=== PATIENT | female | born 1960 | race Caucasian/White ===

== ENCOUNTER 2016-05-04 16:55 | Emergency (ER) | payer OTHER ==
--- NOTE | 2016-05-04 22:00 | ED ORDER SUMMARY ---
..... 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) (17:22 05/04/2016 EKoroleva P.A.-C) (Ack 18:25 LNations ER Tech1) (18:52 DDean R.N.) Cardiac Panel Stat (17:22 05/04/2016 EKoroleva P.A.-C) (Ack 17:30 NHouse ER Tech1) (18:03 JRomanelli R.N.) PTT Urgent (17:05/04/2016 EKoroleva P.A.-C) (Ack 17:30 NHouse ER Tech1) (18:03 JRomanelli R.N.) PT with INR Urgent (17:22 05/04/2016 EKoroleva P.A.-C) (Ack 17:30 NHouse ER Tech1) (18:03 JRomanelli R.N.) Lipase Urgent (17:22 05/04/2016 EKoroleva P.A.-C) (Ack 17:30 NHouse ER Tech1) (18:03 JRomanelli R.N.) UA-Culture if indicated Urgent (17:22 05/04/2016 EKoroleva P.A.-C) (Ack 17:30 NHouse ER Tech1) (18:05 DDean R.N.) EKG - ER Stat (17:22 05/04/2016 EKoroleva P.A.-C) (17:26 LNations ER Tech1) POC Glucose (17:22 05/04/2016 EKoroleva P.A.-C) (17:25 LNations ER Tech1) ABG (G) Urgent (18:07 05/04/2016 EKoroleva P.A.-C) (Ack 18:25 LNations ER Tech1) (18:59 DDean R.N.) Lactate, Serum Urgent (18:05/04/2016 EKoroleva P.A.-C) (Ack 18:25 LNations ER Tech1) (19:02 NHouse ER Tech1) Acetone, Serum Urgent (18:17 05/04/2016 EKoroleva P.A.-C) (Ack 18:25 LNations ER Tech1) (19:02 NHouse ER Tech1) POC Glucose (20:18 05/04/2016 EKoroleva P.A.-C) (20:25 LMuller) Abd Series 2V Abd/1V Chest Urgent (20:26 05/04/2016 EKoroleva P.A.-C) (20:43 DDean R.N.) Vitals (21:38 05/04/2016 EKoroleva P.A.-C) (21:56 DDean R.N.) POC Glucose (21:54 05/04/2016 EKoroleva P.A.-C) (21:56 DDean R.N.) MEDICATION ORDERS: Phenergan IV 12.5 mg (HIGH ALERT MEDICATION, NOW) (18:13 05/04/2016 EKoroleva P.A.-C) (18:52 DDean R.N.) Atenolol PO 50 mg (NOW) (20:48 05/04/2016 EKoroleva P.A.-C) (20:49 DDean R.N.) GI Cocktail WHITE PO 30 mL with Lidocaine Viscous Mouth/Throat 15 mL, Maalox Plus Oral 15 mL (NOW) (21:19 05/04/2016 EKoroleva P.A.-C) (Ack 21:50 DDean R.N.) (21:56 DDean R.N.) IV FLUIDS: IV NS : initial bolus 1000 mL (1000 mL/hr), then 1000 mL/hr for X1 (NOW); Lester (17:22 05/04/2016 EKoroleva P.A.-C) (Ack 18:05 DDean R.N.) (18:50 DDean R.N.) Zofran IV 4 mg (NOW) (18:50 05/04/2016 DDean R.N. per protocol) (18:51 DDean R.N.) Ativan IV 0.5 mg (HIGH ALERT MEDICATION, NOW) (18:58 05/04/2016 EKoroleva P.A.-C) (Ack 18:59 DDean R.N.) (19:05 DDean R.N.) Dilaudid IV 0.5 mg (HIGH ALERT MEDICATION, NOW) (18:58 05/04/2016 EKoroleva P.A.-C) (Ack 18:59 DDean R.N.) (19:06 DDean R.N.) Dilaudid IV 0.5 mg (HIGH ALERT MEDICATION, NOW) (20:26 05/04/2016 EKoroleva P.A.-C) (20:45 DDean R.N.) ORDER SHEET NOTES: [Electronically signed by Dorina Levy R.N. (22:22 05/04/2016)] [Electronically signed by Yesica BeattyA.-C (22:48 05/04/2016)] [Electronically locked/signed by Dorina Levy R.N. (22:22 05/04/2016)]
--- NOTE | 2016-05-04 22:00 | ED ORDER SUMMARY ---
..... 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) (17:22 05/04/2016 EKoroleva P.A.-C) (Ack 18:25 LNations ER Tech1) (18:52 DDean R.N.) Cardiac Panel Stat (17:22 05/04/2016 EKoroleva P.A.-C) (Ack 17:30 NHouse ER Tech1) (18:03 JRomanelli R.N.) PTT Urgent (17:05/04/2016 EKoroleva P.A.-C) (Ack 17:30 NHouse ER Tech1) (18:03 JRomanelli R.N.) PT with INR Urgent (17:22 05/04/2016 EKoroleva P.A.-C) (Ack 17:30 NHouse ER Tech1) (18:03 JRomanelli R.N.) Lipase Urgent (17:22 05/04/2016 EKoroleva P.A.-C) (Ack 17:30 NHouse ER Tech1) (18:03 JRomanelli R.N.) UA-Culture if indicated Urgent (17:22 05/04/2016 EKoroleva P.A.-C) (Ack 17:30 NHouse ER Tech1) (18:05 DDean R.N.) EKG - ER Stat (17:22 05/04/2016 EKoroleva P.A.-C) (17:26 LNations ER Tech1) POC Glucose (17:22 05/04/2016 EKoroleva P.A.-C) (17:25 LNations ER Tech1) ABG (G) Urgent (18:07 05/04/2016 EKoroleva P.A.-C) (Ack 18:25 LNations ER Tech1) (18:59 DDean R.N.) Lactate, Serum Urgent (18:05/04/2016 EKoroleva P.A.-C) (Ack 18:25 LNations ER Tech1) (19:02 NHouse ER Tech1) Acetone, Serum Urgent (18:17 05/04/2016 EKoroleva P.A.-C) (Ack 18:25 LNations ER Tech1) (19:02 NHouse ER Tech1) POC Glucose (20:18 05/04/2016 EKoroleva P.A.-C) (20:25 LMuller) Abd Series 2V Abd/1V Chest Urgent (20:26 05/04/2016 EKoroleva P.A.-C) (20:43 DDean R.N.) Vitals (21:38 05/04/2016 EKoroleva P.A.-C) (21:56 DDean R.N.) POC Glucose (21:54 05/04/2016 EKoroleva P.A.-C) (21:56 DDean R.N.) MEDICATION ORDERS: Phenergan IV 12.5 mg (HIGH ALERT MEDICATION, NOW) (18:13 05/04/2016 EKoroleva P.A.-C) (18:52 DDean R.N.) Atenolol PO 50 mg (NOW) (20:48 05/04/2016 EKoroleva P.A.-C) (20:49 DDean R.N.) GI Cocktail WHITE PO 30 mL with Lidocaine Viscous Mouth/Throat 15 mL, Maalox Plus Oral 15 mL (NOW) (21:19 05/04/2016 EKoroleva P.A.-C) (Ack 21:50 DDean R.N.) (21:56 DDean R.N.) IV FLUIDS: IV NS : initial bolus 1000 mL (1000 mL/hr), then 1000 mL/hr for X1 (NOW); Lester (17:22 05/04/2016 EKoroleva P.A.-C) (Ack 18:05 DDean R.N.) (18:50 DDean R.N.) Zofran IV 4 mg (NOW) (18:50 05/04/2016 DDean R.N. per protocol) (18:51 DDean R.N.) Ativan IV 0.5 mg (HIGH ALERT MEDICATION, NOW) (18:58 05/04/2016 EKoroleva P.A.-C) (Ack 18:59 DDean R.N.) (19:05 DDean R.N.) Dilaudid IV 0.5 mg (HIGH ALERT MEDICATION, NOW) (18:58 05/04/2016 EKoroleva P.A.-C) (Ack 18:59 DDean R.N.) (19:06 DDean R.N.) Dilaudid IV 0.5 mg (HIGH ALERT MEDICATION, NOW) (20:26 05/04/2016 EKoroleva P.A.-C) (20:45 DDean R.N.) ORDER SHEET NOTES: [Electronically signed by Dorina Levy R.N. (22:22 05/04/2016)] [Electronically signed by Yesica BeattyA.-C (22:48 05/04/2016)] [Electronically locked/signed by Dorina Levy R.N. (22:22 05/04/2016)]
--- NOTE | 2016-05-04 22:00 | ED CLINICAL REPORT ---
Clinical Report - Physicians/Mid Levels [facility] [address] [place] [address] 05/04/2016 16:57 Patient: LIZZY DORSEY Time Seen: 17:33 May 04 2016. Arrived- By private vehicle. Historian- patient. HISTORY OF PRESENT ILLNESS Chief Complaint: ABDOMINAL PAIN. It is described as "pain" and it is described as located in the epigastric area and in the upper abdomen. This started yesterday and is still present. (56-year-old female, who was seen at [facility] on the eighth, with abdominal pain, that started on the fifth, with associated diarrhea, for 3 days, none now. Patient reports going home, resting and sleeping, however woke up with abdominal pain, no emesis. Has a history of hypertension,, and for such to be high. Patient received medical care at [facility], reports advanced images. Was discharged last night after 5 hours.). ADDITIONAL NOTES The nursing notes have been reviewed. PHYSICAL EXAM Vital Signs: 05/04/2016 17:10 BP: 203/99. HR: 95. RR: 24. O2 saturation: 100%. Temp: 99.5 F. Pain level now: 8/10. Appearance: Alert. Eyes: Eyes normal inspection. No scleral icterus. ENT: Nose normal. Pharynx normal. Neck: Normal inspection. No thyromegaly. CVS: Normal heart rate and rhythm. Heart sounds normal. Respiratory: No respiratory distress. Breath sounds normal. No decreased air movement. Abdomen: Mild tenderness diffusely and in the epigastric area. No organomegaly. No mass. Skin: Skin warm. Normal skin color. Neuro: Oriented X 3. LABS, X-RAYS, AND EKG EKG: EKG time: (5838). No acute process. No acute ischemia. Rate: 96. Normal QRS complex. Normal axis. Normal ST and T waves and QT. no change from 05/03/16. EKG unchanged when compared with prior EKG. Chest X-ray: (Portable: 05/03/2016 IMPRESSION- No acute cardiopulmonary process. RADIA Dictated By: Nima Stephens MD 2016-05-03 20:04:10.14). KUB: (1 view chest/ 2 view abd: IMPRESSION: 1. Mild gaseous distention of the small bowel and colon. While this may be normal (or due to air swallowing), consider ileus. 2. Status post cholecystectomy. 3. Otherwise negative abdomen. 4. Negative chest. Electronically Final signed by:Otto Ortiz MD 05/04/2016 10:08:24 PM). Laboratory Tests: UA-Culture if indicated: (VICKI: 05/04/2016 17:05) ( MsgRcvd 05/04/2016 18:04) Final results Test Result Flag Units (Reference) URINE COLOR YELLOW URINE APPEARANCE CLEAR URINE GLUCOSE 3+ (NEGATIVE) URINE BILIRUBIN ICTOTEST NEGATIVE (NEGATIVE) URINE KETONE 1+ (NEGATIVE) URINE SPECIFIC GRAVITY 1.025 (1.010-1.030) URINE PH 5.5 (5.0-8.0) URINE PROTEIN 2+ (NEGATIVE) URINE UROBILINOGEN 0.2 EU/dL (0.2-1.0) URINE NITRITE NEGATIVE (NEGATIVE) URINE BLOOD 2+ (NEGATIVE) URINE LEUK ESTERASE NEGATIVE (NEGATIVE) URINE RBC 1-3 rbc/hpf (0-1) URINE WBC 0-1 wbc/hpf (0-1) URINE EPITHELIAL CELLS 3-5 EPI/hpf (0-5) URINE BACTERIA FEW (1+) (NONE SEEN) URINE COMMENT CULT NOT INDICATED URINE CULTURES ARE SET-UP BASED ON THE FOLLOWING CRITERIA:POSITIVE NITRITEPOSITIVE LEUKOCYTE ESTERASEGREATER THAN 10 WHITE BLOOD CELLSMODERATE (2+) OR GREATER BACTERIA CBC w Diff: (VICKI: 05/04/2016 17:50) ( MsgRcvd 05/04/2016 18:10) Final results Test Result Flag Units (Reference) WHITE BLOOD COUNT 10.9 K/uL (4.5-11.5) RED BLOOD COUNT 4.38 M/uL (4.00-5.20) HEMOGLOBIN 12.6 gm/dL (12.0-16.0) HEMATOCRIT 38.5 % (36.0-46.0) MEAN CELL VOLUME 88 fL (80-100) MEAN CORPUSCULAR HGB 29 pg (26-34) MEAN CORPUSCULAR HGB CONC 33 g/dL (31-37) RED CELL DISTRIBUTION WIDTH 12.5 % (11.6-14.8) PLATELET COUNT 269 K/uL (150-400) NEUTROPHIL % 59.7 % (50-75) LYMPH % 32.1 % (25-40) MONO % 7.0 % (3-14) EOSINOPHIL % 0.8 % (0-4) BASOPHIL % 0.4 % (0-2) PT with INR: (VICKI: 05/04/2016 17:50) ( [facility] [place] [facility]22) Final results Test Result Flag Units (Reference) INR 0.9 (0.8-1.2) Low Intensity Therapy: INR 1.5-2.0 PT range 18.5-23.1Mod.Intensity Therapy: INR 2.0-3.0 PT range 23.1-31.5High Intensity Therapy: INR 2.5-3.5 PT range 27.4-35.5High Intensity Therapy 2: INR 3.0-4.0 PT range 31.5-39.3 APTT 26 SECONDS (24-34) Acetone, Serum: (VICKI: 05/04/2016 17:50) ( [facility] [place] 18:28) Final results Test Result Flag Units (Reference) ACETONE, SERUM QUALITATIVE POSITIVE (NEGATIVE) Lactate, Serum: (VICKI: 05/04/2016 18:50) ( [facility] [place] 05/04/[place] 19:27) Final results Test Result Flag Units (Reference) LACTIC ACID 1.4 mmol/L (0.4-2.0) CHEM 13 PANEL: (VICKI: 05/04/2016 17:50) ( [facility] [place] [facility]04[facility] 18:37) Final results Test Result Flag Units (Reference) GLUCOSE 249 H mg/dL (70-110) BUN 18 mg/dL (7-18) CREATININE 1.3 mg/dL (0.6-1.3) Estimated GFR 44.87 mL/min Estimated GFR- 54.39 mL/min Note: Persistent reduction over 3 months in eGFR<60 mL/min/1.73 m2 defines CKD. Patients with eGFR values>=60 mL/min/1.73 m2 may also have CKD if evidence ofpersistent proteinuria. Additional information may be foundat www.kidney.org. SODIUM 140 mmol/L (136-145) POTASSIUM 3.5 mmol/L (3.5-5.1) CHLORIDE 104 mmol/L (98-107) CARBON DIOXIDE 21 mmol/L (21-32) CALCIUM 8.6 mg/dL (8.5-10.1) TOTAL PROTEIN 7.1 g/dL (6.4-8.2) ALBUMIN 3.7 g/dL (3.3-5.0) BILIRUBIN, TOTAL 0.5 mg/dL (0.0-1.0) ALKALINE PHOSPHATASE 130 H U/L (46-116) AST (SGOT) 18 U/L (15-37) ALT (SGPT) 19 U/L (12-78) MAGNESIUM 1.2 L mg/dL (1.8-2.4) LIPASE 292 U/L (73-393) CPK 230 U/L (24-260) TROPONIN I <0.05 ng/mL (0.00-1.5) TROPONIN REFERENCE RANGE:<0.1 NEGATIVE0.1-1.5 INDETERMINANT>1.5 POSITIVE ABG: (VICKI: 05/04/2016 18:07) ( MsgRcvd 05/04/2016 18:34) Final results Test Result Flag Units (Reference) FIO2 21 % (20-101) MODIFIED JANE TEST POSITIVE? YES ABG VENT MODE SB ABG PATIENT RESP RATE 30 /MIN ARTERIAL BLOOD GAS SITE RR ARTERIAL BLOOD GAS pH 7.48 H (7.35-7.45) ABG PCO2 27.9 L mmHg (35-45) ABG PO2 91.9 mmHg (80.0-100.0) ABG BASE EXCESS -2.3 H mmol/L (-6.0--6.0) ABG HCO3 20.8 mmol/L (20.0-26.0) ABG TCO2 21.7 L mmol/L (24.0-30.0) ABG DdPuD3h 23.6 H mmHg (7.0-14.0) *NOTE: Normal rangeis based on aFIO2 of 21% ABG SAT O2 97.2 % (95.1-100.0) ABG TOTAL HEMOGLOBIN 11.8 L g/dL (12.0-16.0) ABG O2 HEMOGLOBIN 96.3 % (95.0-100.0) ABG CARBOXYHEMOGLOBIN 0.6 % (0.5-1.5) ABG METHEMOGLOBIN 0.3 L % (0.4-1.5) ABG RHEMOGLOBIN 2.8 % . Note - Tests: (ct abd/pelvis w/o contrast: 05/03/2016: IMPRESSION- 1. No localized acute inflammatory process. 2. No urolithiasis or hydronephrosis. 3. Right adrenal nodule is of indeterminate density, however is stable since 09/28/2013 consistent with a benign etiology. RADIA Dictated By: Beatris Carlin MD 2016-05-03 18:01:39.557). PROGRESS AND PROCEDURES Course of Care: prior records reviewed from the eighth, patient with a chest x-ray, CT of the abdomen no contrast, with no significant findings, patient was fine to be with mild DKA, received IV and S, and had improvement. ( glucose: 199). --21:57 here in the ER, patient with abdominal pain, with positive ketones, and glucose less than 300, however elevated, with no signs of acidosis. She was given 2 L of IV saline, her pain of the abdomen worsen when she elevated to the bathroom, and was given Dilaudid for such, she had a negative CT yesterday, and thus x-ray abdomen today was rather unrevealing. Patient did arrive is slight hyperventilation, with anxiety, and this did receive Ativan as well. Otherwise in no distress. Patient able to ambulate. No chest pain or shortness of breath, EKG unremarkable, troponin unremarkable. No signs of cardiac etiology or pulmonary etiology. Patient with no known history of gastritis or ulcer disease, was given GI cocktail, and had some improvement of such as well, to follow up outpatient. patient with elevated blood pressure, was given metoprolol in the ER. Had improvement of such. 05/04/2016 22:15 BP: 166/87. HR: 76. RR: 18. O2 saturation: 98%. Pain level now: 6/10. Patient is stable. Physical exam findings are improved. Symptoms better. Patient/family counseled. Disposition: Discharged. CLINICAL IMPRESSION Acute epigastric abdominal pain of unknown cause. Moderately well controlled type 2 diabetes. Hypertension. INSTRUCTIONS Drink plenty of fluids. (check your sugars daily, and make a follow up with your DR in next 48 hours). Prescription Medications: Hydrocodone/APAP 5mg / 325mg: take 1 orally every 6 hours as needed for pain. Dispense twelve (12). No refill. Zofran (orally disintegrating tablets) 4 mg: take 1 orally every 6 hours for 3 days as needed for nausea. Dispense ten (10). No refill. Substitution is permissible. Follow-up: Follow up with your doctor in two days. (Electronically signed by Yesica Beatty P.A.-C 05/04/2016 22:48)
--- NOTE | 2016-05-04 22:00 | ED NURSING NOTES ---
Clinical Report - Nurses [facility] [address] [place] [address] 05/04/2016 16:57 Patient: LIZZY DORSEY TRIAGE Triage time 1702. Acuity: LEVEL 3. Chief Complaint: ABDOMINAL PAIN. --17:19 Dorina Levy R.N. 17:10 05/04/16. BP: 203/99. HR: 95. RR: 24. O2 saturation: 100%. Temp: 99.5 F. Pain level now: 12/03. --17:19 Dorina Levy R.N. Weight: 88.4 kg stated. Height/Length: 65 inches Per Patient. BMI: 32.5. --17:15 Dorina Levy R.N. Medications Cymbalta Oral 60mg, daily. Gabapentin Oral 1 in am, 2 at HS . HumaLOG Subcutaneous 6 units am, 8units lunch, 10 units dinner. Lantus Subcutaneous. Levemir Subcutaneous 40-50units daily . Lipitor Oral 20 mg, daily. Metoprolol Tartrate Oral 25 mg, BID. Nucynta Oral (Tablet 100 mg) 1 tablet, TID. Reglan Oral 10 mg, 4x a day as needed. --17:53 Dorina Levy R.N. Albuterol Sulfate Inhalation 2 puffs, EERY 6 HOURS NEEDED . Colace Oral 100 mg, 2 tabs BID. Norvasc Oral 5 mg, daily. Vit [id number]-Zn-CU Oral 50mg daily. Vit D-Vit E-Safflower Oil External 1000UNITS daily. --18:01 Dorina Levy R.N. The following entry was struck and corrected by Dorina Levy R.N., 18:04 (05/04/16) Reason for correction - other(correction). <<STRICKEN ENTRY-- Cymbalta Oral 60mg, daily. --17:53 Cam, Dorina, R.N. --END STRIKE>>. Allergies Metformin and Related. --17:49 Dorina Levy R.N. History Arrived by private vehicle. Historian: patient. Accompanied by spouse. Primary physician (bobkatiuska). The patient has had diarrhea and abdominal pain. No nausea or vomiting. SOCIAL HX: Never smoker. No alcohol use or drug use. --17:19 Dorina Levy R.N. PROBLEMS: Hyperkalemia. Gallstone(s). Anxiety Reaction. MRSA Infection. Abd pain, N/V. Leukocytosis. LNMP - Last Normal Menstrual Period. Nerve pain. Vomiting. Abdominal Pain. Gastroparesis. Panic Attack. Hypercholesterolemia. Hypertension. Diabetes Mellitus. --17:16 Dorina Levy R.N. ADDITIONAL SURGERIES: Cholecystectomy. Colonoscopy. Cyst removed from axilla. Endoscopy. Hysterectomy. Neck Surgery. Previous Abdominal Surgery. Rotator Cuff Surgery. Shoulder Surgery. --17:16 Dorina Levy R.N. Interventions ID band on patient. To treatment room. --17:19 Dorina Levy R.N. PHYSICAL ASSESSMENT 17:02. Ambulatory to room. Patient gowned. GENERAL / NEURO / PSYCH: Alert. Oriented X 4. Appears anxious. RESPIRATORY: Respirations not labored. CVS: ( states she feels short of breath due to anxiety). Capillary refill less than 2 seconds. GI / : The patient has diarrhea. SKIN: Skin is warm and dry. --17:18 Dorina Levy R.N. NURSING PROGRESS NOTES 17:02. Patient gowned. Head of bed elevated. Reassurance given. Patient identifiers checked. Call light placed in reach. Side rails up. Bed placed in lowest position. Patient ready for evaluation- chart flagged. --17:17 Dorina Levy R.N. ( bl. [id number]). --17:26 Madai Moyer, QUAN Tech 17:30. ( hot packs applied to arm prior to IV attempt). --17:35 Dorina Levy R.N. 17:30 05/04/2016 One (1) unsuccessful IV access attempt including the right antecubital space. Applied bandaid. --17:35 Dorina Levy R.N. EKG time: (1738). EKG was ordered, performed by a tech and shown to the ED physician. --17:44 Madai Moyer ER Tech1 17:52 05/04/2016 Site #1 started via IV in the left forearm with an 22g angiocath, with aseptic technique and good blood return; one attempt. Blood drawn: rainbow set. Labeled in the presence of the patient and sent to the lab. Saline lock flushed with 10 mL saline. --18:02 Patrice Alexis R.N. 18:07 05/04/2016 Started bag #1 1000 mL IV Fluids IV NS (Saline); at 1000 mL/hr over 1 hour(s) via site #1 via IV pump. IV patency established. IV site checked: no pain, redness, or swelling. IV flushed thoroughly pre- and post-medication administration. --18:50 Dorina Levy R.N. 18:07 05/04/2016 Zofran (Ondansetron HCl) IVP 4 mg given over 1 minute(s) via site #1. IV patency established. IV site checked: no pain, redness, or swelling. IV flushed thoroughly pre- and post-medication administration. IVP given by RN. --18:51 Dorina Levy R.N. 18:50 05/04/2016 PHENERGAN (Promethazine HCl) IVP 12.5 mg given over 1 minute(s) via site #1. IV patency established. IVP given by RN. --18:52 Dorina Levy R.N. 19:00 05/04/2016 Ativan (LORazepam) IVP 0.5 mg given over 1 minute(s) via site #1. IV patency established. IV site checked: no pain, redness, or swelling. IV flushed thoroughly pre- and post-medication administration. IVP given by RN. --19:05 Dorina Levy R.N. 19:02 05/04/2016 Dilaudid (HYDROmorphone HCl PF) IVP 0.5 mg given over 1 minute(s) via site #1. IV patency established. IV site checked: no pain, redness, or swelling. IV flushed thoroughly pre- and post-medication administration. IVP given by RN. --19:06 Dorina Levy R.N. 18:50 05/04/16. BP: 209/97. HR: 94. RR: 22. O2 saturation: 98%. Temp: deferred. Pain level now: 12/03. Additional comments: pt still c/o abd pain, ERPA notified, meds ordered and given . --19:07 Dorina Levy R.N. 19:10 05/04/16. BP: 181/82. HR: 87. RR: 20. O2 saturation: 96%. Temp: deferred. Pain level now: 11/02. --19:13 Dorina Levy R.N. Reassessment after medication administered. Overall patient status is improved- she states feels better. --19:13 Dorina Levy R.N. 19:10 05/04/2016 IV Fluids IV NS Bag Change: bag #1 infused. Total amount infused: 1000. STARTED bag #2 (1000 mL) at 1000 mL/hr via IV pump. IV patency established. IV site checked: no pain, redness, or swelling. IV flushed thoroughly. --19:14 Dorina Levy R.N. 19:50. ( Pt ambulated to bathroom with escort, steady on feet, c/o worsening abd pain after being up, asking for more pain meds ERPA notified). --20:07 Dorina Levy R.N. 20:00 05/04/16. BP: 210/96. HR: 90. RR: 22. O2 saturation: 98%. Temp: deferred. Pain level now: 12/03. --20:07 Dorina Levy R.N. ( blood glucose: 192). --20:26 Akilah Acuna 20:10 05/04/2016 IV Fluids IV NS Discontinued: bag #2 infused upon discharge. Total amount infused: 1000 mL. IV patency established. IV site checked: no pain, redness, or swelling. IV flushed thoroughly. --20:41 Dorina Levy R.N. 20:30. Patient transported to radiology by stretcher with Hudl. --20:44 Dorina Levy R.N. 20:41. Patient returned from radiology by stretcher with tech. --20:45 Dorina Levy R.N. 20:42 05/04/2016 Dilaudid (HYDROmorphone HCl PF) IVP 0.5 mg given over 1 minute(s) via site #1. Sedative warning given to the patient. IV patency established. IV site checked: no pain, redness, or swelling. IV flushed thoroughly pre- and post-medication administration. IVP given by RN. --20:45 Dorina Levy R.N. 20:45 05/04/16. BP: 190/84. HR: 86. RR: 20. O2 saturation: 97% on room air. Temp: deferred. Pain level now: 11/02. --20:46 Dorina Levy R.N. 20:49 05/04/2016 Atenolol PO Oral Suspension 50 mg given. --20:49 Dorina Levy R.N. 21:50 05/04/16. BP: 178/81. HR: 86. RR: 20. O2 saturation: 99% on room air. Temp: deferred. Pain level now: 10. Additional comments: given GI cocktail, no change in pain level. --21:56 Dorina Levy R.N. 21:46 05/04/2016 GI cocktail * PO 50 --21:56 Dorina Levy R.N. 21:57 05/04/16. ( [id number] ERPA notified). --21:57 Dorina Levy R.N. ( glucose: 199). --21:57 Akilah Acuna 22:05 05/04/2016 Site #1 removed upon discharge. Bandaid applied. --22:21 Dorina Levy R.N. DISPOSITION / DISCHARGE 22:15. Condition at departure: improved and stable. No learning barriers present. Discharge instructions provided and reviewed with the patient and spouse. Reviewed medication(s) (zofran, vicodin). Patient and spouse verbalized understanding. Written instructions provided in Bengali. The patient was discharged home and accompanied by spouse. She left the Emergency Department ambulatory and via private vehicle. Spouse driving. --22:20 Dorina Levy R.N. 22:15 05/04/16. BP: 166/87. HR: 76. RR: 18. O2 saturation: 98% on room air. Temp: deferred. Pain level now: 10/03. --22:20 Dorina Levy R.N. Locked/Released at 05/04/2016 22:22 by Dorina Levy R.N.
--- NOTE | 2016-05-04 22:09 | DIAGNOSTIC IMAGING REPORT ---
PROCEDURE: XR ABD SERIES 2V ABD/1V CHEST INDICATION: ABDOMINAL PAIN TECHNIQUE: AP supine and upright views with PA view chest. COMPARISON: None. FINDINGS: ABDOMEN: Mild gaseous distention in nondilated small bowel and colon. No evidence of free air. Soft tissues and osseous structures are normal. Status post cholecystectomy (surgical clips). CHEST: Lungs are clear. Heart and mediastinum are normal. Postoperative changes and fusion of the lower cervical/upper thoracic spine. IMPRESSION: 1. Mild gaseous distention of the small bowel and colon. While this may be normal (or due to air swallowing), consider ileus. 2. Status post cholecystectomy. 3. Otherwise negative abdomen. 4. Negative chest.
--- NOTE | 2016-05-04 22:48 | ED MED RECONCILIATION SUMMARY ---
Patient: LIZZY DORSEY Medication Reconciliation Report [facility] VisitID: [id number] [address] [place] [address] 56y, F Registration Date/Time: 05/04/2016 Weight: 88.4 kg Height/Length: 65 in. BMI: 32.5 ALLERGIES: Metformin and Related The patient's Home Medications are listed below: THE FOLLOWING MEDICATIONS NEED TO BE RECONCILED: Albuterol Sulfate Inhalation 2 puffs, EERY 6 HOURS NEEDED Colace Oral 100 mg, 2 tabs BID Cymbalta Oral 60mg, daily Gabapentin Oral 1 in am, 2 at HS HumaLOG Subcutaneous 6 units am, 8units lunch, 10 units dinner Lantus Subcutaneous Levemir Subcutaneous 40-50units daily Lipitor Oral 20 mg, daily Metoprolol Tartrate Oral 25 mg, BID Norvasc Oral 5 mg, daily Nucynta Oral (100 mg) 1 tablet, TID Reglan Oral 10 mg, 4x a day Vit [id number] Oral 50mg daily Vit D-Vit E-Safflower Oil External 1000UNITS daily The source(s) of the original Home Medication information: Not obtained. The following Medications were given to the patient in the Emergency Department: IV NS IV Fluids bolus 0, then 1000 mL/hr, administered: 05/04/2016 6:07:00 PM Zofran [IVP] IVP 4 mg, administered: 05/04/2016 6:07:00 PM PHENERGAN [IVP] IVP 12.5 mg, administered: 05/04/2016 6:50:00 PM Ativan [IVP] IVP 0.5 mg, administered: 05/04/2016 7:00:00 PM Dilaudid [IVP] IVP 0.5 mg, administered: 05/04/2016 7:02:00 PM Dilaudid [IVP] IVP 0.5 mg, administered: 05/04/2016 8:42:00 PM Atenolol [PO] PO 50 mg, administered: 05/04/2016 8:49:00 PM GI cocktail PO 50, administered: 05/04/2016 9:46:00 PM The following Medications were prescribed to the patient: Hydrocodone/APAP 5mg / 325mg: take 1 orally every 6 hours as needed for pain. Dispense twelve (12). No refill. -- Yesica Beatty P.A.-C Zofran (orally disintegrating tablets) 4 mg: take 1 orally every 6 hours for 3 days as needed for nausea. Dispense ten (10). No refill. Substitution is permissible. -- Yesica Beatty P.A.-C
--- NOTE | 2016-05-04 22:48 | ED MAR SUMMARY ---
..... Medication Administration Record [facility] [address] [place] [address] Patient: LIZZY DORSEY Visit ID: [id number] 56y, F Weight: 88.4 kg Height/Length: 65 in BMI: 32.5 ALLERGIES: Metformin and Related Given 18:07 05/04/2016 Dorina Levy R.N. Medication Administered: ZOFRAN [IVP] (ONDANSETRON HCL), Dose: 4 mg IVP over 1 minute(s), Site: #1 left forearm. Medication Ordered: Zofran IV 4 mg (NOW). Start 18:07 05/04/2016 Dorina Levy R.N., Stop 20:10 05/04/2016 Dorina Levy R.N. Medication Administered: IV NS (SALINE), Dose: IV Fluids over 1 hour(s), Rate: 1000 mL/hr, Dispensed: 1000 mL bag, Site: #1 left forearm. Medication Ordered: IV NS : initial bolus 1000 mL (1000 mL/hr), then 1000 mL/hr for X1 (NOW); Lester. Given 18:50 05/04/2016 Dorina Levy R.N. Medication Administered: PHENERGAN [IVP] (PROMETHAZINE HCL), Dose: 12.5 mg IVP over 1 minute(s), Site: #1 left forearm. Medication Ordered: Phenergan IV 12.5 mg (HIGH ALERT MEDICATION, NOW). Given 19:00 05/04/2016 Dorina Levy R.N. Medication Administered: ATIVAN [IVP] (LORAZEPAM), Dose: 0.5 mg IVP over 1 minute(s), Site: #1 left forearm. Medication Ordered: Ativan IV 0.5 mg (HIGH ALERT MEDICATION, NOW). Given 19:02 05/04/2016 Dorina Levy R.N. Medication Administered: DILAUDID [IVP] (HYDROMORPHONE HCL PF), Dose: 0.5 mg IVP over 1 minute(s), Site: #1 left forearm. Medication Ordered: Dilaudid IV 0.5 mg (HIGH ALERT MEDICATION, NOW). Given 20:42 05/04/2016 Dorina Levy RSharitaN. Medication Administered: DILAUDID [IVP] (HYDROMORPHONE HCL PF), Dose: 0.5 mg IVP over 1 minute(s), Site: #1 left forearm. Medication Ordered: Dilaudid IV 0.5 mg (HIGH ALERT MEDICATION, NOW). Given 20:49 05/04/2016 Dorina Levy R.N. Medication Administered: ATENOLOL [PO], Dose: 50 mg Oral Suspension PO. Medication Ordered: Atenolol PO 50 mg (NOW). Given 21:46 05/04/2016 Dorina Levy RSharitaN. Medication Administered: GI cocktail *, Dose: 50 * PO. Medication Ordered: GI Cocktail WHITE PO 30 mL with Lidocaine Viscous Mouth/Throat 15 mL, Maalox Plus Oral 15 mL (NOW).
--- NOTE | 2016-05-04 22:48 | ED DISCHARGE INSTRUCTIONS ---
Patient: LIZZY DORSEY General Instructions [facility] VisitID: [id number] [place] [address] 56y, F Registration Date/Time: 05/04/2016 Acute epigastric abdominal pain of unknown cause. Moderately well controlled type 2 diabetes. Hypertension. INSTRUCTIONS Drink plenty of fluids. (check your sugars daily, and make a follow up with your DR in next 48 hours). Prescription Medications: Hydrocodone/APAP 5mg / 325mg: take 1 orally every 6 hours as needed for pain. Dispense twelve (12). No refill. Zofran (orally disintegrating tablets) 4 mg: take 1 orally every 6 hours for 3 days as needed for nausea. Dispense ten (10). No refill. Substitution is permissible. Follow-up: Follow up with your doctor in two days. ADDITIONAL INFORMATION Epigastric Pain (Uncertain Cause) Epigastric pain can be a sign of disease in the upper abdomen. Common causes include: Acid reflux (stomach acid flowing up into the esophagus) Gastritis (irritation of the stomach lining) Peptic Ulcer Disease Inflammation of the pancreas Gallstone Infection in the gallbladder Pain may be dull or burning. It may spread upward to the chest or to the back. There may be other symptoms such as belching, bloating, cramps or hunger pains. There may be weight loss or poor appetite, nausea or vomiting. Since the diagnosis of your pain is not certain yet, further tests will be needed. Sometimes the doctor will treat you for the most likely condition to see if there is improvement before doing further tests. Home Care: Unless told otherwise, you may try antacids (Mylanta or Maalox) help neutralize stomach acid. This may relieve your pain. Take 1-2 tablespoons or tablets one hour after meals and at bedtime. The liquid form coats the stomach better than the chewable tablets and is preferred. If Tagamet (cimetidine), Zantac (ranitidine), or Carafate (sucralfate) has also been prescribed, allow one hour between taking this medicine and taking the antacids. Avoid foods that irritate the stomach. Follow a light diet until you are feeling better. Avoid alcohol, caffeine, and tobacco. Talk to your doctor before taking any [id number] medicine that contains aspirin or an anti-inflammatory drug such as ibuprofen, Advil, Motrin, Naprosyn, or Aleve. Follow Up with your doctor or as advised if you do not improve over the next 48 hours. Get Prompt Medical Attention if any of the following occur: Stomach pain worsens or moves to the right lower part of the abdomen Chest pain appears, or if it worsens or spreads to the chest, back, neck, shoulder, or arm Frequent vomiting (cant keep down liquids) Blood in the stool or vomit (red or black color) Feeling weak or dizzy, fainting, or having trouble breathing Fever of 100.4F (38C) or higher, or as directed by your healthcare provider Abdominal swelling Symptoms With Uncertain Cause [Adult] Based on the exam and any tests that were performed today, the exact cause of your symptoms is not certain. While your condition does not seem serious, the signs of a serious problem may take more time to appear. Therefore, it is important for you to watch for any new symptoms or worsening of your condition.Follow up with your doctor or this facility, as directed.A repeat physical exam or additional testing at a later time may uncover a cause for your symptoms that is not evident today. Home Care: Resume your usual activities and diet when this feels comfortable to do so. Follow Up with your doctor, or as advised by our staff.Contact your doctor sooner if your symptoms do not begin to improve in the next few days. [NOTE: If you had an x-ray, CT scan, ultrasound, or ECG (electrocardiogram), it will be reviewed by a specialist. You will be notified of any new findings that may affect your care.] Get Prompt Medical Attention if any of the following occur: Current symptoms get worse New symptoms appear Diabetes (General Information) Cells of the body need glucose (sugar) for fuel. Insulin is the hormone in the body that lets glucose move from the blood into the cells. Diabetes is a chronic health condition where the body is not able to produce enough insulin, or does not respond well to its own insulin. Because the glucose in the blood cannot get into the cells, it builds up in the blood causing high blood sugar (hyperglycemia). Your actual blood sugar level is a result of the balance between several factors. These include what kind of food you eat and how much of it you eat, how much exercise you get, and the amount of insulin present in your body. Eating too much of the wrong kinds of food or not taking diabetes medicine on time can cause high blood sugar. Infections can cause high blood sugar even if you are taking medicines correctly. Missing meals, not eating enough food, or taking too much diabetes medicine can lead to low blood sugar. Untreated over long periods of time, diabetes can cause serious problems such as heart disease, stroke, kidney failure, blindness, nerve pain or loss of feeling in the legs and feet, and gangrene of the feet. With good treatment keeping your blood sugar under control, you can prevent or delay the complications of diabetes. Normal blood sugar levels are 70-130 one to two hours before a meal and not more than 180 two hours after a meal. Home Care: Follow your prescribed diabetic diet and take insulin or oral diabetic medicine exactly as ordered. Monitor blood sugars as advised. Keep a log of your results. This will help your doctor adjust your medicines to keep your blood sugar under control. Try to achieve your ideal weight. Proper diet and exercise can reduce or eliminate the need to take diabetes medicine. Avoid tobacco smoking, which worsens the effect of diabetes on your circulation. The risk of a heart attack in a diabetic is 15 times more likely if you smoke. Pay attention to good foot care. If you have lost feeling in your feet you may not notice an injury or infection. Check your feet and between your toes at least once a week. Wear a medical alert bracelet or carry a card in your wallet explaining that you are diabetic. In the event that you become very ill and are unable to give this information, it will help medical personnel provide proper care. If you become sick with a cold, the flu, or an infection (viral or bacterial), please do the following: Review your diabetes sick plan and contact your physician as instructed. You may have been advised to call the doctor immediately if: Your blood sugar is above 240 while taking your diabetes medication Your urine ketone levels are above normal or showing high levels of ketones You have been vomiting more than 6 hours You experience difficulty to trouble breathing You develop a high fever or you have had a fever for a couple of days and you aren't getting better You become light-headed and more sleepy than usual Keep taking your oral diabetes medicine (pills) even if you have been vomiting and feeling sick. Contact your doctor immediately for advice because you may need insulin to lower your blood sugar until you recover from your illness. Keep taking your insulin, even if you have been vomiting and feeling sick. Call your doctor immediately and ask if a temporary adjustment of your insulin dose is needed based on your blood glucose (sugar) results. Check your blood sugar every 2 to 4 hours, or at least 4 times a day. Check your keytones often. If you are vomiting and having diarrhea, monitor them more frequently. Don't skip meals. Try to eat small meals on a regular schedule, even if you do not have an appetite. Drink water or other calorie-free, non-caffeinated liquids to stay hydrated. If you are nauseated or vomiting, drink small amounts (sips, a teaspoon) every 5 minutes. To prevent dehydration, try to drink a cup or 8 ounces of fluids every hour while you are awake. Always carry a source of fast-acting sugar with you in case you get symptoms of low blood sugar (below 70). At the first sign of low blood sugar, eat or drink 15 to 20 grams of fast-acting sugar to raise your blood sugar. Examples include: 3 to 4 glucose tablets (found at most drugstores) 4 ounces (1/2 cup) of regular (not diet) softdrinks 4 ounces (1/2 cup) of any fruit juice 8 ounces (1 cup) of milk 5 to 6 pieces of hard candy 1 tablespoon of honey Check your blood sugar 15 minutes after treating yourself. If it is still low (below 70), take another 15 to 20 grams of fast-acting sugar. Test again in 15 minutes. If it returns to normal (70 or above), eat a snack or meal to keep your blood sugar in a safe range. If it remains low, call your doctor or go to an emergency room. Follow Up with your doctor as advised by our staff. For more information, contact the [place] [employer]. www.diabetes.org or 900-129-9792. Get Prompt Medical Attention if any of the following occur: HIGH BLOOD SUGAR: frequent urination, dizziness, drowsiness, thirst, headache, nausea or vomiting, abdominal pain, vision changes, fast breathing, confusion or loss of consciousness LOW BLOOD SUGAR: fatigue, headache, shakes, excess sweating, hunger, feeling anxious or restless, vision changes, drowsiness, weakness, confusion or loss of consciousness Chest pain or shortness of breath Dizziness or fainting Weakness of an arm or leg or one side of the face Trouble with speech or vision Abrams Diet A bland diet is used for patients with an upset stomach. It consists of foods that are mild and easy to digest. It is better to eat small frequent meals rather than three large meals a day. BEVERAGES OK: Fruit juices, non-caffeinated teas and coffee, non-carbonated saleem AVOID: Carbonated beverage, caffeinated tea and coffee, all alcoholic beverages BREAD OK: Refined white, wheat or rye bread, david or soda crackers, [place] toast, plain rolls, bagels AVOID: Whole-grain bread CEREAL OK: Refined cereals: cooked or ready to eat AVOID: Whole grain cereals and granola, or those containing bran, seeds or nuts DESSERTS OK: Peanut butter and all others except those to "avoid" AVOID: Chocolate, cocoa, coconut, popcorn, nuts, seeds, jam, marmalade FRUITS OK: Canned, cooked, frozen or fresh fruits without seeds or tough skin AVOID: Olives, skin and seeds of fruit MEATS OK: All fresh or preserved meat, fish and fowl AVOID: Any that are prepared with those spices to "avoid" CHEESE & EGGS OK: Eggs, cottage cheese, cream cheese, other cheeses AVOID: All cheeses made with those spices to "avoid" POTATOES & PASTA OK: Potato, rice, macaroni, noodles, spaghetti AVOID: None SOUPS OK: All soups without heavy seasoning AVOID: Soups made with those spices to "avoid" VEGETABLES OK: Canned, cooked, fresh or frozen mildly flavored vegetables without seeds, skins or coarse fiber AVOID: Vegetables prepared with those spices to "avoid"; skin and seeds of vegetables and those with coarse fiber SPICES OK: Salt, lemon and nome juice, vinegar, all extracts, henry, cinnamon, thyme, mace, allspice, paprika AVOID: Henderson powder, cloves, pepper, seed spices, garlic, gravy pickles, highly seasoned salad dressings Clear Liquid Diet Clear liquids are any liquid that you can see through as well as those that are very easy to digest. This is used while the body is recovering from irritation or infection of the stomach or intestinal tract. It may also be used before special procedures or surgery. This diet is to be used no more than three days. You may include the following items. Adults Adults should drink a total of 23 quarts of liquid per day. It may be easier to drink small frequent servings rather than a few large ones. Liquids can include: Fruit juices.Strained orange juice or lemonade (no pulp), apple, grape and cranberry juice, clear fruit drinks, sports drinks Beverages.Sport drinks, sodas, mineral water (plain or flavored), tea, black coffee, liquid gelatin (add twice the recommended amount of water) Soups.Clear broth, consomm, bouillon Desserts.Plain gelatin, popsicles, fruit juice bars Children Over 2 years old The following liquids are acceptable for children over age 2: Fruit juices.Strained orange juice or lemonade (no pulp), apple, grape and cranberry juice, clear fruit drinks Beverages. Sports drinks, sodas, mineral water (plain or flavored), tea, liquid gelatin (add twice the recommended amount of water) Soups. Clear broth, consomm, bouillon Desserts. Plain gelatin, popsicles, fruit juice bars Children under 2 years old Oral rehydration fluids such are available at drug stores and most grocery stores without a prescription. Hydrocodone Bitartrate, Acetaminophen Oral tablet What is this medicine? ACETAMINOPHEN; HYDROCODONE (a set a KINSEY emmanuelle fen; caron droe KOE done) is a pain reliever. It is used to treat mild to moderate pain. How should I use this medicine? Take this medicine by mouth. Swallow it with a full glass of water. Follow the directions on the prescription label. If the medicine upsets your stomach, take the medicine with food or milk. Do not take more than you are told to take. Talk to your propellant assembler regarding the use of this medicine in children. This medicine is not approved for use in children. What side effects may I notice from receiving this medicine? Side effects that you should report to your doctor or health multi care technician as soon as possible: allergic reactions like skin rash, itching or hives, swelling of the face, lips, or tongue breathing problems confusion feeling faint or lightheaded, falls stomach pain yellowing of the eyes or skin Side effects that usually do not require medical attention (report to your doctor or health multi care technician if they continue or are bothersome): nausea, vomiting stomach upset What may interact with this medicine? alcohol antihistamines isoniazid medicines for depression, anxiety, or psychotic disturbances medicines for sleep muscle relaxants naltrexone narcotic medicines (opiates) for pain phenobarbital ritonavir tramadol What if I miss a dose? If you miss a dose, take it as soon as you can. If it is almost time for your next dose, take only that dose. Do not take double or extra doses. Where should I keep my medicine? Keep out of the reach of children. This medicine can be abused. Keep your medicine in a safe place to protect it from theft. Do not share this medicine with anyone. Selling or giving away this medicine is dangerous and against the law. Store at room temperature between 15 and 30 degrees C (59 and 86 degrees F). Protect from light. Keep container tightly closed. Throw away any unused medicine after the expiration date. Discard unused medicine and used packaging carefully. Pets and children can be harmed if they find used or lost packages. What should I tell my health care provider before I take this medicine? They need to know if you have any of these conditions: brain tumor Crohn's disease, inflammatory bowel disease, or ulcerative colitis drink more than 3 alcohol-containing drinks per day drug abuse or addiction head injury heart or circulation problems kidney disease or problems going to the bathroom liver disease lung disease, asthma, or breathing problems an unusual or allergic reaction to acetaminophen, hydrocodone, other opioid analgesics, other medicines, foods, dyes, or preservatives or trying to get breast-feeding What should I watch for while using this medicine? Tell your doctor or health multi care technician if your pain does not go away, if it gets worse, or if you have new or a different type of pain. You may develop tolerance to the medicine. Tolerance means that you will need a higher dose of the medicine for pain relief. Tolerance is normal and is expected if you take the medicine for a long time. Do not suddenly stop taking your medicine because you may develop a severe reaction. Your body becomes used to the medicine. This does NOT mean you are addicted. Addiction is a behavior related to getting and using a drug for a non-medical reason. If you have pain, you have a medical reason to take pain medicine. Your doctor will tell you how much medicine to take. If your doctor wants you to stop the medicine, the dose will be slowly lowered over time to avoid any side effects. You may get drowsy or dizzy when you first start taking the medicine or change doses. Do not drive, use machinery, or do anything that may be dangerous until you know how the medicine affects you. Stand or sit up slowly. There are different types of narcotic medicines (opiates) for pain. If you take more than one type at the same time, you may have more side effects. Give your health care provider a list of all medicines you use. Your doctor will tell you how much medicine to take. Do not take more medicine than directed. Call emergency for help if you have problems breathing. The medicine will cause constipation. Try to have a bowel movement at least every 2 to 3 days. If you do not have a bowel movement for 3 days, call your doctor or health multi care technician. Too much acetaminophen can be very dangerous. Do not take Tylenol (acetaminophen) or medicines that contain acetaminophen with this medicine. Many non-prescription medicines contain acetaminophen. Always read the labels carefully. You have been given the following additional information: Epigastric Pain (Uncertain Cause) Symptoms With Uncertain Cause Diabetes, General Info Diet, Abrams (Adult) Diet, Clear Liquid Hydrocodone Bitartrate, Acetaminophen Oral tablet (Electronically signed by Yesica Beatty P.A.-C 05/04/2016 22:48)
--- NOTE | 2016-05-04 22:48 | ED MED RECONCILIATION SUMMARY ---
Patient: LIZZY DORSEY Medication Reconciliation Report [facility] VisitID: [id number] [address] [place] [address] 56y, F Registration Date/Time: 05/04/2016 Weight: 88.4 kg Height/Length: 65 in. BMI: 32.5 ALLERGIES: Metformin and Related The patient's Home Medications are listed below: THE FOLLOWING MEDICATIONS NEED TO BE RECONCILED: Albuterol Sulfate Inhalation 2 puffs, EERY 6 HOURS NEEDED Colace Oral 100 mg, 2 tabs BID Cymbalta Oral 60mg, daily Gabapentin Oral 1 in am, 2 at HS HumaLOG Subcutaneous 6 units am, 8units lunch, 10 units dinner Lantus Subcutaneous Levemir Subcutaneous 40-50units daily Lipitor Oral 20 mg, daily Metoprolol Tartrate Oral 25 mg, BID Norvasc Oral 5 mg, daily Nucynta Oral (100 mg) 1 tablet, TID Reglan Oral 10 mg, 4x a day Vit [id number] Oral 50mg daily Vit D-Vit E-Safflower Oil External 1000UNITS daily The source(s) of the original Home Medication information: Not obtained. The following Medications were given to the patient in the Emergency Department: IV NS IV Fluids bolus 0, then 1000 mL/hr, administered: 05/04/2016 6:07:00 PM Zofran [IVP] IVP 4 mg, administered: 05/04/2016 6:07:00 PM PHENERGAN [IVP] IVP 12.5 mg, administered: 05/04/2016 6:50:00 PM Ativan [IVP] IVP 0.5 mg, administered: 05/04/2016 7:00:00 PM Dilaudid [IVP] IVP 0.5 mg, administered: 05/04/2016 7:02:00 PM Dilaudid [IVP] IVP 0.5 mg, administered: 05/04/2016 8:42:00 PM Atenolol [PO] PO 50 mg, administered: 05/04/2016 8:49:00 PM GI cocktail PO 50, administered: 05/04/2016 9:46:00 PM The following Medications were prescribed to the patient: Hydrocodone/APAP 5mg / 325mg: take 1 orally every 6 hours as needed for pain. Dispense twelve (12). No refill. -- Yesica Beatty P.A.-C Zofran (orally disintegrating tablets) 4 mg: take 1 orally every 6 hours for 3 days as needed for nausea. Dispense ten (10). No refill. Substitution is permissible. -- Yesica Beatty P.A.-C
--- NOTE | 2016-05-04 22:48 | ED MAR SUMMARY ---
..... Medication Administration Record [facility] [address] [place] [address] Patient: LIZZY DORSEY Visit ID: [id number] 56y, F Weight: 88.4 kg Height/Length: 65 in BMI: 32.5 ALLERGIES: Metformin and Related Given 18:07 05/04/2016 Dorina Levy R.N. Medication Administered: ZOFRAN [IVP] (ONDANSETRON HCL), Dose: 4 mg IVP over 1 minute(s), Site: #1 left forearm. Medication Ordered: Zofran IV 4 mg (NOW). Start 18:07 05/04/2016 Dorina Levy R.N., Stop 20:10 05/04/2016 Dorina Levy R.N. Medication Administered: IV NS (SALINE), Dose: IV Fluids over 1 hour(s), Rate: 1000 mL/hr, Dispensed: 1000 mL bag, Site: #1 left forearm. Medication Ordered: IV NS : initial bolus 1000 mL (1000 mL/hr), then 1000 mL/hr for X1 (NOW); Lester. Given 18:50 05/04/2016 Dorina Levy R.N. Medication Administered: PHENERGAN [IVP] (PROMETHAZINE HCL), Dose: 12.5 mg IVP over 1 minute(s), Site: #1 left forearm. Medication Ordered: Phenergan IV 12.5 mg (HIGH ALERT MEDICATION, NOW). Given 19:00 05/04/2016 Dorina Levy R.N. Medication Administered: ATIVAN [IVP] (LORAZEPAM), Dose: 0.5 mg IVP over 1 minute(s), Site: #1 left forearm. Medication Ordered: Ativan IV 0.5 mg (HIGH ALERT MEDICATION, NOW). Given 19:02 05/04/2016 Dorina Levy R.N. Medication Administered: DILAUDID [IVP] (HYDROMORPHONE HCL PF), Dose: 0.5 mg IVP over 1 minute(s), Site: #1 left forearm. Medication Ordered: Dilaudid IV 0.5 mg (HIGH ALERT MEDICATION, NOW). Given 20:42 05/04/2016 Dorina Levy RSharitaN. Medication Administered: DILAUDID [IVP] (HYDROMORPHONE HCL PF), Dose: 0.5 mg IVP over 1 minute(s), Site: #1 left forearm. Medication Ordered: Dilaudid IV 0.5 mg (HIGH ALERT MEDICATION, NOW). Given 20:49 05/04/2016 Dorina Levy R.N. Medication Administered: ATENOLOL [PO], Dose: 50 mg Oral Suspension PO. Medication Ordered: Atenolol PO 50 mg (NOW). Given 21:46 05/04/2016 Dorina Levy RSharitaN. Medication Administered: GI cocktail *, Dose: 50 * PO. Medication Ordered: GI Cocktail WHITE PO 30 mL with Lidocaine Viscous Mouth/Throat 15 mL, Maalox Plus Oral 15 mL (NOW).
== END 2016-05-04 22:15 | disposition home or self-care (01) ==
LOC: ED SRH 16:55
DX: R10.13 Epigastric pain (principal); I10 Essential (primary) hypertension; E11.9 Type 2 diabetes mellitus without complications; Z79.899 Other long term (current) drug therapy; Z88.8 Allergy status to other drugs, medicaments and biological substances
CPT/HCPCS: 90004; 90098; 90100; 90301; 90616; 92031; 92235; 92610; 92720; 94001; 94060; 95059

== ENCOUNTER 2016-08-13 19:21 | Inpatient (IN) | payer OTHER ==
[~2016-08-13] VITALS: Ht 165.1 cm; Wt 82.4 kg
--- NOTE | 2016-08-13 21:37 | DIAGNOSTIC IMAGING REPORT ---
PROCEDURE: XR ABD SERIES 2V ABD/1V CHEST INDICATION: ABDOMINAL PAIN TECHNIQUE: AP supine and upright views with PA view chest. COMPARISON: None. FINDINGS: ABDOMEN: Status post cholecystectomy (surgical clips). Solitary surgical clip overlying lower pelvis. Bowel pattern is normal. No evidence of free air. Soft tissues are normal. Moderate degenerative changes of the lumbar spine with probable fusion of the lower lumbar spine. CHEST: Lungs are clear. Heart and mediastinum are normal. Postoperative changes and fusion of the upper thoracic spine (metal hardware). IMPRESSION: 1. Status post cholecystectomy. 2. Moderate degenerative changes and probable fusion of the lower lumbar spine. 3. Otherwise negative abdomen. 4. Postoperative changes and fusion of the upper thoracic spine. 5. Otherwise negative chest.
--- NOTE | 2016-08-13 23:04 | DIAGNOSTIC IMAGING REPORT ---
PROCEDURE: CT ABDOMEN/PELVIS W/O CONTRAST INDICATION: ABDOMINAL PAIN TECHNIQUE: Axial CT images were obtained through the abdomen and pelvis without IV contrast. Coronal and sagittal reformations were created. COMPARISON: 02/04/2014, 11/19/2013 FINDINGS: Clear lung bases. Normal sized heart. No hiatal hernia. Gallbladder surgically absent. 2.2 cm right adrenal adenoma. Splenule at the splenic hilum. The unenhanced appearance of the liver, left adrenal gland, kidneys, pancreas and spleen is normal. The abdominal aorta is normal in its course and caliber with mild atherosclerosis. There are no suspicious calcifications, retroperitoneal adenopathy or masses. The stomach is distended with fluid and air. Proximal bowel loops are decompressed. No evidence for bowel obstruction. Redundant transverse colon. Occasional descending colon diverticula. No acute inflammation.. Intact anterior abdominal wall. No free fluid or inflammation. Surgically absent uterus. Occasional sigmoid diverticula. The unenhanced appearance of the urinary bladder, pelvic vessels, and pelvic bowel loops is normal. Normal appendix. No suspicious calcifications, free pelvic fluid or mass. Intact osseous structures. Severe disc height loss L5-S1 IMPRESSION: 1. No acute process. 2. Minor diverticulosis without diverticulitis. 3. Very slight enlargement of the right adrenal adenoma. 4. Post hysterectomy and cholecystectomy. 5. Findings called to the emergency room. All CT scans at this facility use dose modulation, iterative reconstruction, and/or weight-based dosing when appropriate to reduce radiation dose to as low as reasonably achievable.
[2016-08-14] VITALS (12 sets, daily range): BP systolic 73–134; BP diastolic 37–72
--- NOTE | 2016-08-14 00:17 | ED ORDER SUMMARY ---
..... Patient: LIZZY DORSEY OrderSheet [facility] VisitID: [id number] [place] [address] 56y, F Registration Date/Time: 08/13/2016 ORDER SHEET Weight: 86.1 kg (stated) Allergies: Metformin and Related, LIsinopril GENERAL ORDERS: Abd Series 2V Abd/1V Chest Urgent (20:03 08/13/2016 EKoroleva P.A.-C) (Ack 20:06 SRedmond) (20:56 MCampbell) Deputy Director Of Finance (Continuous) (20:04 08/13/2016 EKoroleva P.A.-C) (Ack 20:06 SRedmond) (21:29 RCollier R.N.) Cardiac Panel Stat (20:04 08/13/2016 EKoroleva P.A.-C) (Ack 20:06 SRedmond) (21:29 RCollier R.N.) PTT Urgent (20:04 08/13/2016 EKoroleva P.A.-C) (Ack 20:06 SRedmond) (21:29 RCollier R.N.) PT with INR Urgent (20:04 08/13/2016 EKoroleva P.A.-C) (Ack 20:06 SRedmond) (21:29 RCollier R.N.) UA-Culture if indicated Urgent (20:04 08/13/2016 EKoroleva P.A.-C) (Ack 20:06 SRedmond) (0:08 SRedmond) PCT (Procalcitonin) Urgent (20:04 08/13/2016 EKoroleva P.A.-C) (Ack 20:06 SRedmond) (21:29 RCollier R.N.) EKG - ER Stat (20:04 08/13/2016 EKoroleva P.A.-C) (Ack 20:06 SRedmond) (20:15 CHagerty ER Boilermaker Mechanic) Vitals (Temp) (20:46 08/13/2016 EKoroleva P.A.-C) (Ack 20:48 SRedmond) (21:29 RCollier R.N.) CT Abd/Pel wo Cont Urgent (21:53 08/13/2016 EKoroleva P.A.-C) (Ack 21:56 SRedmond) (22:45 MCampbell) Acetone, Serum Urgent (22:23 08/13/2016 EKoroleva P.A.-C) (Ack 22:26 SRedmond) (0:09 SRedmond) ABG (G) Urgent (22:36 08/13/2016 EKoroleva P.A.-C) (Ack 22:41 SRedmond) (0:09 SRedmond) MEDICATION ORDERS: Insulin Reg Subcut 8 units (HIGH ALERT MEDICATION, NOW) (22:37 08/13/2016 EKoroleva P.A.-C) (Ack 23:14 DDavis R.N.) (Cancelled: Physician Order23:26 DDavis R.N.) Phenergan IV 12.5 mg (HIGH ALERT MEDICATION, NOW) (23:11 08/13/2016 EKoroleva P.A.-C) (Ack 23:14 DDavis R.N.) (23:27 DDavis R.N.) Insulin Reg Subcut 4 units (NOW) (23:27 08/13/2016 DDavis R.N. verbal order read back to EKoroleva P.A.-C) (23:28 DDavis R.N.) Phenergan IV 12.5 mg (HIGH ALERT MEDICATION, NOW) (00:31 08/14/2016 EKoroleva P.A.-C) (Ack 0:56 RCollier R.N.) (1:02 RCollier R.N.) IV FLUIDS: IV NS : initial bolus 1000 mL (1000 mL/hr), then 1000 mL/hr for X1 (NOW); Lester (20:03 08/13/2016 EKoroleva P.A.-C) (Ack 20:14 RCollier R.N.) (20:48 RCollier R.N.) Reglan IV 10 mg (NOW) (20:04 08/13/2016 EKoroleva P.A.-C) (Ack 20:14 RCollier R.N.) (20:49 RCollier R.N.) Zofran IV 8 mg (NOW) (21:13 08/13/2016 EKoroleva P.A.-C) (Ack 21:15 RCollier R.N.) (21:27 RCollier R.N.) Haldol IV 3 mg (HIGH ALERT MEDICATION, NOW) (21:13 08/13/2016 EKoroleva P.A.-C) (Ack 21:15 RCollier R.N.) (21:28 RCollier R.N.) Benadryl IV 25 mg (NOW) (21:14 08/13/2016 EKoroleva P.A.-C) (Ack 21:15 RCollier R.N.) (21:29 RCollier R.N.) Dilaudid IV 1 mg (HIGH ALERT MEDICATION, NOW) (21:14 08/13/2016 EKoroleva P.A.-C) (Ack 21:15 RCollier R.N.) (21:29 RCollier R.N.) Dilaudid IV 1 mg (HIGH ALERT MEDICATION, NOW) (00:59 08/14/2016 EKoroleva P.A.-C) (Ack 1:02 RCollier R.N.) (1:04 RCollier R.N.) ORDER SHEET NOTES: [Electronically signed by Yesica Beatty P.A.-C (00:45 08/14/2016)] [Electronically signed by Carole Acevedo R.N. (02:35 08/14/2016)] [Electronically locked/signed by Carole Acevedo R.N. (02:35 08/14/2016)]
--- NOTE | 2016-08-14 00:17 | ED NURSING NOTES ---
Clinical Report - Nurses [address] [place] [address] 08/13/2016 19:21 Patient: LIZZY DORSEY TRIAGE Triage time 19:56. Acuity: LEVEL 3. Chief Complaint: ABDOMINAL PAIN, NAUSEA and VOMITING. --20:00 Carole Acevedo R.N. 19:56 08/13/16. BP: 180/88. HR: 104. RR: 18 (unlabored). O2 saturation: 100% on room air. Mcdowell-Vance pain scale: 10. --20:00 Carole Acevedo R.N. Weight: 86.1 kg stated. Height/Length: 65 inches Per Patient. BMI: 31.6. --19:59 Carole Acevedo R.N. Medications Albuterol Sulfate Inhalation 2 puffs, EERY 6 HOURS NEEDED . Colace Oral 100 mg, 2 tabs BID. Cymbalta Oral 60mg, daily. Gabapentin Oral 1 in am, 2 at HS . HumaLOG Subcutaneous 6 units am, 8units lunch, 10 units dinner. Lantus Subcutaneous. Levemir Subcutaneous 40-50units daily . Metoprolol Tartrate Oral 25 mg, BID. Nucynta Oral (Tablet 100 mg) 1 tablet, TID. Reglan Oral 10 mg, 4x a day as needed. Vit M9-LuupEo-Pivg-FA-B6-Zn-CU Oral 50mg daily. Vit D-Vit E-Safflower Oil External 1000UNITS daily. --19:58 Carole Acevedo R.N. Morphine Sulfate Oral 1mg, 3x a day. --19:59 Carole Acevedo R.N. Percocet Oral, 2x a day. --19:59 Carole Acevedo R.N. Allergies Metformin and Related. --19:58 Carole Acevedo R.N. LIsinopril. --19:59 Carole Acevedo R.N. History Arrived by private vehicle. Historian: patient. Accompanied by family. Primary physician (Nish). ( has appt with PCP tomorrow). This started today. Onset. (at about 1400). 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 (jean claude today at 1800). PAST MEDICAL HX: Immunizations: up-to-date. SOCIAL HX: Never smoker. No alcohol use or drug use. --20:00 Carole Acevedo R.N. PROBLEMS: Hyperkalemia. Gallstone(s). Anxiety Reaction. MRSA Infection. Abd pain, N/V. Leukocytosis. Back Pain. Nerve pain. Vomiting. Abdominal Pain. Gastroparesis. Panic Attack. Hypercholesterolemia. Hypertension. Diabetes Mellitus. --20:00 Carole Acevedo R.N. ADDITIONAL SURGERIES: Cholecystectomy. Colonoscopy. Cyst removed from axilla. Endoscopy. Hysterectomy. Neck Surgery. Previous Abdominal Surgery. Rotator Cuff Surgery. Shoulder Surgery. --20:00 Carole Acevedo R.N. Interventions ID band on patient. To treatment room. --20:00 Carole Acevedo R.N. PHYSICAL ASSESSMENT Ambulatory to room. Patient gowned. GENERAL / NEURO / PSYCH: Oriented X 4. Appears in no acute distress. Appears in pain. HEENT: Mucous membranes are pink. RESPIRATORY: Respirations not labored. CVS: Capillary refill less than 2 seconds. SKIN: Skin is warm and dry. --20:01 Carole Acevedo R.N. NURSING PROGRESS NOTES Head of bed elevated. Two patient identifiers checked. Call light placed in reach. Side rails up x 1. Bed placed in lowest position. Brakes of bed on. --20:01 Carole Acevedo R.N. Patient ready for evaluation- chart flagged. --20:01 Carole Acevedo R.N. 20:10 08/13/2016 Two (2) unsuccessful IV access attempts including the right antecubital space and hand. Applied bandage and manual pressure. --20:13 Carole Acevedo R.N. Patient transported to radiology by stretcher with tech. (20:12). --20:13 Carole Acevedo R.N. EKG time: (2009). EKG was ordered, performed by a tech and shown to the ED physician and PA. --20:15 Angelo Barakat, ER Tactical Response Group Officer 20:40 08/13/2016 Two (2) unsuccessful IV access attempts including the right upper arm and left hand. Applied bandage and manual pressure (2 IV attempts made with US guidance.). --20:47 Carole Acevedo R.N. 20:42 08/13/2016 Site #1 started via IV in the right foot with an 22g angiocath, with aseptic technique and good blood return; one attempt. Saline lock flushed with 10 mL saline (UNABLE TO DRAW LABS AT TIME IF IV START, lab notified to draw blood.). --20:48 Carole Acevedo R.N. 20:42 08/13/2016 Started bag #1 1000 mL IV Fluids IV NS (Saline); at 1000 mL/hr over 1 hour(s) via site #1 via IV pump. Allergies verified and confirmed 5 rights. IV patency established. IV site checked: no pain, redness, or swelling. IV flushed thoroughly pre- and post-medication administration. --20:48 Carole Acevedo R.N. 20:43 08/13/2016 Reglan (Metoclopramide HCl) IVP 10 mg given over 2 minute(s) via site #1. Allergies verified and confirmed 5 rights. IV patency established. IV site checked: no pain, redness, or swelling. IV flushed thoroughly pre- and post-medication administration. IVP given by RN. --20:49 Carole Acevedo R.N. 20:49- manometer technician at bedside to draw blood. --20:49 Carole Acevedo R.N. threat monitoring analyst, pulse oximeter and NIBP monitor placed on patient; monitor alarms on. --20:58 Angelo Barakat, ER Tactical Response Group Officer 21:05 08/13/16. BP: 177/76 (regular adult cuff) taken on the left arm, via an automated monitor, while lying. HR: 94. RR: 14. O2 saturation: 100% on room air. Temp: 98.7 F (oral). --21:06 Angelo Barakat, ER Tactical Response Group Officer 21:21 08/13/2016 Zofran (Ondansetron HCl) IVP 8 mg given over 2 minute(s) via site #1. Allergies verified and confirmed 5 rights. IV patency established. IV site checked: no pain, redness, or swelling. IV flushed thoroughly pre- and post-medication administration. IVP given by RN. --21:27 Carole Acevedo R.N. 21:22 08/13/2016 HALDOL (Haloperidol Lactate) IVP 3 mg given over 1 minute(s) via site #1. Allergies verified, confirmed 5 rights and sedative warning given to the patient. IV patency established. IV site checked: no pain, redness, or swelling. IV flushed thoroughly pre- and post-medication administration. IVP given by RN. --21:28 Carole Acevedo R.N. 21:23 08/13/2016 Benadryl (DiphenhydrAMINE HCl) IVP 25 mg given over 1 minute(s) via site #1. Allergies verified, confirmed 5 rights and sedative warning given to the patient. IV patency established. IV site checked: no pain, redness, or swelling. IV flushed thoroughly pre- and post-medication administration. IVP given by RN. --21:29 Carole Acevedo R.N. 21:24 08/13/2016 Dilaudid (HYDROmorphone HCl PF) IVP 1 mg given over 90 second(s) via site #1. Allergies verified, confirmed 5 rights and sedative warning given to the patient. IV patency established. IV site checked: no pain, redness, or swelling. IV flushed thoroughly pre- and post-medication administration. IVP given by RN. --21:29 Carole Acevedo R.N. 21:29 08/13/16. BP: 186/82. HR: 99. RR: 15. O2 saturation: 100% on room air. Mcdowell-Vance pain scale: 4/10. --21:30 Carole Acevedo R.N. 21:42 08/13/2016 IV Fluids IV NS Discontinued: bag #1 STOPPED. Total amount infused: 1000 mL. IV patency established. IV site checked: no pain, redness, or swelling. IV flushed thoroughly. --21:44 Carole Acevedo R.N. Reassessment after medication administered. She is calm. ( pt still complains of pain but states "its better".). --22:05 Carole Acevedo R.N. Point of care testing: performed by nurse. Glucose: 245. --23:19 Ata Holman R.N. RT at bedside to draw ABG. --23:22 Carole Acevedo R.N. 23:22 08/13/16. BP: 187/94. HR: 106. RR: 15. O2 saturation: 97% on room air. Mcdowell-Vance pain scale: 4/10. --23:22 Carole Acevedo R.N. 23:25 08/13/2016 PHENERGAN (Promethazine HCl) IVP 12.5 mg given over 1 minute(s) via site #1. Allergies verified and confirmed 5 rights. IV patency established. IV site checked: no pain, redness, or swelling. IV flushed thoroughly pre- and post-medication administration. IVP given by RN. --23:27 Ata Holman R.N. 23:27 08/13/2016 Insulin Reg Subcutaneous 4 unit given. Given in the right upper arm. Allergies verified and confirmed 5 rights. --23:28 Ata Holman R.N. ( pt assisted up to BSC and back to bed. Pt tolerated well). --23:44 Carole Acevedo R.N. Patient ID band checked for patient name and birthdate: patient confirmed urine collected with return of yellow-colored urine; sample sent to lab. Specimen labeled in the presence of the patient. --23:44 Carole Acevedo R.N. 00:15 08/14/2016 Started bag #1 1000 mL IV Fluids IV NS (Saline); at 1000 mL/hr over 1 hour(s) via site #1. Allergies verified and confirmed 5 rights. IV patency established. IV site checked: no pain, redness, or swelling. IV flushed thoroughly pre- and post-medication administration. Completed per protocol. --00:15 Ata Holman R.N. 01:00 08/14/2016 PHENERGAN (Promethazine HCl) IVP 12.5 mg given over 90 second(s) via site #1. Allergies verified and confirmed 5 rights. IV patency established. IV site checked: no pain, redness, or swelling. IV flushed thoroughly pre- and post-medication administration. IVP given by RN. --01:02 Carole Acevedo R.N. 01:02 08/14/2016 Dilaudid (HYDROmorphone HCl PF) IVP 1 mg given over 90 second(s) via site #1. Allergies verified, confirmed 5 rights and sedative warning given to the patient. IV patency established. IV site checked: no pain, redness, or swelling. IV flushed thoroughly pre- and post-medication administration. IVP given by RN. --01:04 Carole Acevedo R.N. 01:52 08/14/16. BP: 129/78. HR: 95. RR: 16 (regular and unlabored). O2 saturation: 100% on room air. Mcdowell-Vance pain scale: 08/03. --01:53 Carole Acevedo R.N. DISPOSITION / DISCHARGE Report was given to a nurse via a phone call. Report included patient's care, treatment, medications, reviewed medication reconcilliation, and condition (including any recent changes or anticipated changes). All questions were answered. Report was acknowledged. (to SULMA Brown). --02:07 Carole Acevedo R.N. 01:15 08/14/2016 IV Fluids IV NS Discontinued: bag #2 completed. Total amount infused: 1000 mL. IV patency established. IV site checked: no pain, redness, or swelling. IV flushed thoroughly. --02:08 Carole Acevedo R.N. 02:08 08/14/2016 Site #[address] upon admission; flushes easily. --02:08 Carole Acevedo R.N. 02:09 08/14/16. BP: 128/79. HR: 99. RR: 15. O2 saturation: 100% on room air. Temp: 98.4 F (oral). Mcdowell-Vance pain scale: 10. --02:13 Carole Acevedo R.N. Patient's personal items include: shirt, coat and purse, slippers; items were placed in belongings bag and transported with the patient. Collection of belongings was witnessed by 1 nurse. --02:13 Carole Acevedo R.N. Transported via stretcher by transport team with IV. --02:16 Carole Acevedo R.N. Locked/Released at 08/14/2016 2:35 by Carole Acevedo R.N.
--- NOTE | 2016-08-14 00:17 | ED ORDER SUMMARY ---
..... Patient: LIZZY DORSEY OrderSheet [facility] VisitID: [id number] [place] [address] 56y, F Registration Date/Time: 08/13/2016 ORDER SHEET Weight: 86.1 kg (stated) Allergies: Metformin and Related, LIsinopril GENERAL ORDERS: Abd Series 2V Abd/1V Chest Urgent (20:03 08/13/2016 EKoroleva P.A.-C) (Ack 20:06 SRedmond) (20:56 MCampbell) Director Clinical Data (Continuous) (20:04 08/13/2016 EKoroleva P.A.-C) (Ack 20:06 SRedmond) (21:29 RCollier R.N.) Cardiac Panel Stat (20:04 08/13/2016 EKoroleva P.A.-C) (Ack 20:06 SRedmond) (21:29 RCollier R.N.) PTT Urgent (20:04 08/13/2016 EKoroleva P.A.-C) (Ack 20:06 SRedmond) (21:29 RCollier R.N.) PT with INR Urgent (20:04 08/13/2016 EKoroleva P.A.-C) (Ack 20:06 SRedmond) (21:29 RCollier R.N.) UA-Culture if indicated Urgent (20:04 08/13/2016 EKoroleva P.A.-C) (Ack 20:06 SRedmond) (0:08 SRedmond) PCT (Procalcitonin) Urgent (20:04 08/13/2016 EKoroleva P.A.-C) (Ack 20:06 SRedmond) (21:29 RCollier R.N.) EKG - ER Stat (20:04 08/13/2016 EKoroleva P.A.-C) (Ack 20:06 SRedmond) (20:15 CHagerty ER Certified Adapted Physical Educator) Vitals (Temp) (20:46 08/13/2016 EKoroleva P.A.-C) (Ack 20:48 SRedmond) (21:29 RCollier R.N.) CT Abd/Pel wo Cont Urgent (21:53 08/13/2016 EKoroleva P.A.-C) (Ack 21:56 SRedmond) (22:45 MCampbell) Acetone, Serum Urgent (22:23 08/13/2016 EKoroleva P.A.-C) (Ack 22:26 SRedmond) (0:09 SRedmond) ABG (G) Urgent (22:36 08/13/2016 EKoroleva P.A.-C) (Ack 22:41 SRedmond) (0:09 SRedmond) MEDICATION ORDERS: Insulin Reg Subcut 8 units (HIGH ALERT MEDICATION, NOW) (22:37 08/13/2016 EKoroleva P.A.-C) (Ack 23:14 DDavis R.N.) (Cancelled: Physician Order23:26 DDavis R.N.) Phenergan IV 12.5 mg (HIGH ALERT MEDICATION, NOW) (23:11 08/13/2016 EKoroleva P.A.-C) (Ack 23:14 DDavis R.N.) (23:27 DDavis R.N.) Insulin Reg Subcut 4 units (NOW) (23:27 08/13/2016 DDavis R.N. verbal order read back to EKoroleva P.A.-C) (23:28 DDavis R.N.) Phenergan IV 12.5 mg (HIGH ALERT MEDICATION, NOW) (00:31 08/14/2016 EKoroleva P.A.-C) (Ack 0:56 RCollier R.N.) (1:02 RCollier R.N.) IV FLUIDS: IV NS : initial bolus 1000 mL (1000 mL/hr), then 1000 mL/hr for X1 (NOW); Lester (20:03 08/13/2016 EKoroleva P.A.-C) (Ack 20:14 RCollier R.N.) (20:48 RCollier R.N.) Reglan IV 10 mg (NOW) (20:04 08/13/2016 EKoroleva P.A.-C) (Ack 20:14 RCollier R.N.) (20:49 RCollier R.N.) Zofran IV 8 mg (NOW) (21:13 08/13/2016 EKoroleva P.A.-C) (Ack 21:15 RCollier R.N.) (21:27 RCollier R.N.) Haldol IV 3 mg (HIGH ALERT MEDICATION, NOW) (21:13 08/13/2016 EKoroleva P.A.-C) (Ack 21:15 RCollier R.N.) (21:28 RCollier R.N.) Benadryl IV 25 mg (NOW) (21:14 08/13/2016 EKoroleva P.A.-C) (Ack 21:15 RCollier R.N.) (21:29 RCollier R.N.) Dilaudid IV 1 mg (HIGH ALERT MEDICATION, NOW) (21:14 08/13/2016 EKoroleva P.A.-C) (Ack 21:15 RCollier R.N.) (21:29 RCollier R.N.) Dilaudid IV 1 mg (HIGH ALERT MEDICATION, NOW) (00:59 08/14/2016 EKoroleva P.A.-C) (Ack 1:02 RCollier R.N.) (1:04 RCollier R.N.) ORDER SHEET NOTES: [Electronically signed by Yesica Beatty P.A.-C (00:45 08/14/2016)] [Electronically signed by Carole Acevedo R.N. (02:35 08/14/2016)] [Electronically locked/signed by Carole Acevedo R.N. (02:35 08/14/2016)]
--- NOTE | 2016-08-14 00:17 | ED CLINICAL REPORT ---
Clinical Report - Physicians/Mid Levels [facility] [address] [place] [address] 08/13/2016 19:21 Patient: LIZZY DORSEY Time Seen: 2014Aug 13 2016. Arrived- By private vehicle. HISTORY OF PRESENT ILLNESS Chief Complaint: ABDOMINAL PAIN. This started just prior to arrival and is still present. It is described as "pain" and it is described as located in the upper abdomen. The patient has had nausea, loss of appetite and vomiting. No diarrhea. (nausea vomiting and abdominal pain since 1400, history of similar with gastroparesis. patient reports history of seemed similar. Denies any real diarrhea. Denies sick contacts. Denies any fevers or chills. Has not taken her insulin today. Denies taking her blood glucose today. Denies any recent travel or any recent antibiotics.). REVIEW OF SYSTEMS No constipation, black stools, difficulty with urination, urinary frequency or fever. No chest pain, difficulty breathing or chills. All systems otherwise negative, except as recorded above. PAST HISTORY Problems: Hyperkalemia. Gallstone(s). Anxiety Reaction. MRSA Infection. Abd pain, N/V. Leukocytosis. Immunizations. LNMP - Last Normal Menstrual Period. Back Pain. Nerve pain. Vomiting. Abdominal Pain. Gastroparesis. Panic Attack. Hypercholesterolemia. Hypertension. Diabetes Mellitus. Additional Surgeries: Cholecystectomy. Colonoscopy. Cyst removed from axilla. Endoscopy. Hysterectomy. Neck Surgery. Previous Abdominal Surgery. Rotator Cuff Surgery. Shoulder Surgery. Medications: Percocet Oral, 2x a day. Morphine Sulfate Oral 1mg, 3x a day. Albuterol Sulfate Inhalation 2 puffs, EERY 6 HOURS NEEDED . Colace Oral 100 mg, 2 tabs BID. Cymbalta Oral 60mg, daily. Gabapentin Oral 1 in am, 2 at HS . HumaLOG Subcutaneous 6 units am, 8units lunch, 10 units dinner. Lantus Subcutaneous. Levemir Subcutaneous 40-50units daily . Metoprolol Tartrate Oral 25 mg, BID. Nucynta Oral (Tablet 100 mg) 1 tablet, TID. Reglan Oral 10 mg, 4x a day as needed. Vit F8-HoefVs-Ekke-FA-B6-Zn-CU Oral 50mg daily. Vit D-Vit E-Safflower Oil External 1000UNITS daily. Allergies: LIsinopril. Metformin and Related. SOCIAL HISTORY Never smoker. No alcohol use. ADDITIONAL NOTES The nursing notes have been reviewed. PHYSICAL EXAM Vital Signs: 08/13/2016 19:56 BP: 180/88. HR: 104. RR: 18. O2 saturation: 100%. Mcdowell-Vance pain scale: 6/10. Appearance: Alert. No acute distress. ENT: Ears normal. Neck: Normal inspection. No lymphadenopathy. CVS: Tachycardia. Pulses normal. Respiratory: No respiratory distress. Breath sounds normal. Abdomen: Soft. Mild tenderness in the epigastric area. Obese. No distention, mass present or gravid uterus. Back: Normal inspection. No CVA tenderness. Skin: Skin warm. No rash. Neuro: Oriented X 3. LABS, X-RAYS, AND EKG EKG: EKG time: (2009). No acute process. Rate: 104. Tachycardia (104). Normal QRS complex. Normal axis. no acute st , t changes as reviewed with DR. Rios. The study has been independently viewed by me. I agree with and confirm the computer reading of the EKG. Abdominal CT: IMPRESSION: 1. No acute process. 2. Minor diverticulosis without diverticulitis. 3. Very slight enlargement of the right adrenal adenoma. 4. Post hysterectomy and cholecystectomy. 5. Findings called to the emergency room. All CT scans at this facility use dose modulation, iterative reconstruction, and/or weight-based dosing when appropriate to reduce radiation dose to as low as reasonably achievable. _ Electronically Final signed by:Alexandria Millard MD 08/13/2016 11:04:12 PM. Laboratory Tests: UA-Culture if indicated: (VICKI: 08/13/2016 23:38) ( MsgRcvd 08/14/2016 00:39) Final results Test Result Flag Units (Reference) URINE COLOR YELLOW URINE APPEARANCE CLEAR URINE GLUCOSE TRACE (NEGATIVE) URINE BILIRUBIN ICTOTEST NEGATIVE (NEGATIVE) URINE KETONE 2+ (NEGATIVE) URINE SPECIFIC GRAVITY >= 1.030 (1.010-1.030) URINE PH 5.5 (5.0-8.0) URINE PROTEIN 2+ (NEGATIVE) URINE UROBILINOGEN 0.2 EU/dL (0.2-1.0) URINE NITRITE NEGATIVE (NEGATIVE) URINE BLOOD 1+ (NEGATIVE) URINE LEUK ESTERASE NEGATIVE (NEGATIVE) URINE RBC 1-3 rbc/hpf (0-1) URINE WBC 0-1 wbc/hpf (0-1) URINE EPITHELIAL CELLS >15 EPI/hpf (0-5) URINE BACTERIA FEW (1+) (NONE SEEN) URINE COMMENT CULT NOT INDICATED 5-10 HYALINE CASTURINE CULTURES ARE SET-UP BASED ON THE FOLLOWING CRITERIA:POSITIVE NITRITEPOSITIVE LEUKOCYTE ESTERASEGREATER THAN 10 WHITE BLOOD CELLSMODERATE (2+) OR GREATER BACTERIA CBC w Diff: (VICKI: 08/13/2016 21:00) ( MsgRcvd 08/13/2016 21:21) Final results Test Result Flag Units (Reference) WHITE BLOOD COUNT 17.0 H K/uL (4.5-11.5) RED BLOOD COUNT 4.92 M/uL (4.00-5.20) HEMOGLOBIN 13.8 gm/dL (12.0-16.0) HEMATOCRIT 41.9 % (36.0-46.0) MEAN CELL VOLUME 85 fL (80-100) MEAN CORPUSCULAR HGB 28 pg (26-34) MEAN CORPUSCULAR HGB CONC 33 g/dL (31-37) RED CELL DISTRIBUTION WIDTH 13.1 % (11.6-14.8) PLATELET COUNT 405 H K/uL (150-400) NEUTROPHIL % 75.5 H % (50-75) LYMPH % 19.0 L % (25-40) MONO % 5.0 % (3-14) EOSINOPHIL % 0.2 % (0-4) BASOPHIL % 0.3 % (0-2) PT with INR: (VICKI: 08/13/2016 21:00) ( MsgRcvd 08/13/2016 21:25) Final results Test Result Flag Units (Reference) INR 1.0 (0.8-1.2) Low Intensity Therapy: INR 1.5-2.0 PT range 18.5-23.1Mod.Intensity Therapy: INR 2.0-3.0 PT range 23.1-31.5High Intensity Therapy: INR 2.5-3.5 PT range 27.4-35.5High Intensity Therapy 2: INR 3.0-4.0 PT range 31.5-39.3 APTT 26 SECONDS (24-34) Acetone, Serum: (VICKI: 08/13/2016 21:00) ( MsgRcvd 08/13/2016 22:35) Final results Test Result Flag Units (Reference) ACETONE, SERUM QUALITATIVE POSITIVE (NEGATIVE) [id number]: (VICKI: 08/13/2016 21:00) ( MsgRcvd 08/13/2016 22:09) Final results Test Result Flag Units (Reference) PROCALCITONIN < 0.05 ng/mL (0-0.5) PCT Concentration: Interpretation : Risk/option for action PCT <=0.5 ng/mL : Systemic : Low risk forinfection(sepsis): progression to severeis not likely. : systemic infection.Local bacterial : CAUTION-PCT levelsinfection is : below 0.5 ng/mL do notpossible. : exclude an infection,because localizedinfections (withoutsystemic signs) may beassociated with suchlow levels. If PCT ismeasured very earlyafter a bacterialchallenge (usually <6hours), these valuesmay still be low. Inthis case PCT shouldbe re-assessed 6-24hours later. PCT >0.5 and : Systemic infection: Moderate risk for<= 2 ng/mL : (sepsis) is : progression to severepossible, but : systemic infection.other conditions : The patient should beare known to : closely monitoredelevate PCT. : both clinically andby re-assessing PCTwithin 6-24 hours. PCT > 2 ng/mL : Systemic infection: High risk for(sepsis) is likely: progression to severeunless other : systemic infection.causes are known. : PCT >= 10 ng/mL : Important systemic: High likelihood ofinflammatory : severe sepsis orresponse, almost : septic shock.exclusively due to:severe bacterial :sepsis or septic :shock. : CHEM 13 PANEL: (VICKI: 08/13/2016 21:00) ( MsgRcvd 08/13/2016 21:48) Final results Test Result Flag Units (Reference) GLUCOSE 299 H mg/dL (70-110) BUN 28 H mg/dL (7-18) CREATININE 1.6 H mg/dL (0.6-1.3) Estimated GFR 35.31 mL/min Estimated GFR- 42.80 mL/min Note: Persistent reduction over 3 months in eGFR<60 mL/min/1.73 m2 defines CKD. Patients with eGFR values>=60 mL/min/1.73 m2 may also have CKD if evidence ofpersistent proteinuria. Additional information may be foundat www.kidney.org. SODIUM 140 mmol/L (136-145) POTASSIUM 3.4 L mmol/L (3.5-5.1) CHLORIDE 100 mmol/L (98-107) CARBON DIOXIDE 25 mmol/L (21-32) CALCIUM 9.4 mg/dL (8.5-10.1) TOTAL PROTEIN 7.7 g/dL (6.4-8.2) ALBUMIN 3.7 g/dL (3.3-5.0) BILIRUBIN, TOTAL 0.7 mg/dL (0.0-1.0) ALKALINE PHOSPHATASE 161 H U/L (46-116) AST (SGOT) 12 L U/L (15-37) ALT (SGPT) 20 U/L (12-78) CPK 51 U/L (24-260) MAGNESIUM 1.7 L mg/dL (1.8-2.4) TROPONIN I <0.05 L ng/mL (0.00-1.5) TROPONIN REFERENCE RANGE:<0.1 NEGATIVE0.1-1.5 INDETERMINANT>1.5 POSITIVE ABG: (VICKI: 08/13/2016 22:36) ( MsgRcvd 08/13/2016 23:28) Final results Test Result Flag Units (Reference) FIO2 21 % (20-101) ABG MODE OF DELIVERY RA MODIFIED JANE TEST POSITIVE? YES ABG PATIENT RESP RATE 20 /MIN ARTERIAL BLOOD GAS SITE RR ARTERIAL BLOOD GAS pH 7.50 H (7.35-7.45) ABG PCO2 36.5 mmHg (35-45) ABG PO2 92.5 mmHg (80.0-100.0) ABG BASE EXCESS 4.7 H mmol/L (-6.0--6.0) ABG HCO3 28.2 H mmol/L (20.0-26.0) ABG TCO2 29.3 mmol/L (24.0-30.0) ABG [id number] 17.1 H mmHg (7.0-14.0) *NOTE: Normal rangeis based on aFIO2 of 21% ABG SAT O2 97.9 % (95.1-100.0) ABG TOTAL HEMOGLOBIN 13.0 g/dL (12.0-16.0) ABG O2 HEMOGLOBIN 96.5 % (95.0-100.0) ABG CARBOXYHEMOGLOBIN 1.2 % (0.5-1.5) ABG METHEMOGLOBIN 0.2 L % (0.4-1.5) ABG RHEMOGLOBIN 2.1 % . Note - Tests: (xr abd/ chest: IMPRESSION: 1. Status post cholecystectomy. 2. Moderate degenerative changes and probable fusion of the lower lumbar spine. 3. Otherwise negative abdomen. 4. Postoperative changes and fusion of the upper thoracic spine. 5. Otherwise negative chest. Electronically Final signed by:Otto Ortiz MD 08/13/2016 9:34:09 PM). PROGRESS AND PROCEDURES Course of Care: Here in the ER patient remained hypertensive, and epigastric pain. She has signs of leukocytosis with a left shift, and a CT of the abdomen was ordered, which not reveal any acute abnormalities. Urinalysis was signs of ketones, as well as serum ketones. Patient with a largely normal, slightly [place] abg. II have given HER-2 liters of fluid, Zofran 8 mg IV, Reglan 10 mg IV, Phenergan 12.5 mg IV 2. She continues to have emesis. Unable to tolerate any by mouth sips. Discussed case with Dr. Estevez in the emergency department, who advised for admission. Discussed case with Dr. Linder, hospitalist, who will accept the patient, and see the patient in the emergency department. ED admit transition orders written by Dr. Estevez. 08/13/2016 23:22 BP: 187/94. HR: 106. RR: 15. O2 saturation: 97%. Mcdowell-Vance pain scale: 4/10. 08/13/2016 21:29 BP: 186/82. HR: 99. RR: 15. O2 saturation: 100%. Mcdowell-Vance pain scale: 4/10. Physical exam findings are unchanged. The patient's symptoms are unchanged. Patient/family counseled. Disposition: Admitted. CLINICAL IMPRESSION Type 2 diabetes with hyperglycemia. Hypertension. Intractable Emesis with Abdominal Pain. (Electronically signed by Yesica Beatty P.A.-C 08/14/2016 0:45)
--- NOTE | 2016-08-14 00:17 | ED NURSING NOTES ---
Clinical Report - Nurses [facility] [address] [place] [address] 08/13/2016 19:21 Patient: LIZZY DROSEY TRIAGE Triage time 19:56. Acuity: LEVEL 3. Chief Complaint: ABDOMINAL PAIN, NAUSEA and VOMITING. --20:00 Carole Acevedo R.N. 19:56 08/13/16. BP: 180/88. HR: 104. RR: 18 (unlabored). O2 saturation: 100% on room air. Mcdowell-Vance pain scale: 10. --20:00 Carole Acevedo R.N. Weight: 86.1 kg stated. Height/Length: 65 inches Per Patient. BMI: 31.6. --19:59 Carole Acevedo R.N. Medications Albuterol Sulfate Inhalation 2 puffs, EERY 6 HOURS NEEDED . Colace Oral 100 mg, 2 tabs BID. Cymbalta Oral 60mg, daily. Gabapentin Oral 1 in am, 2 at HS . HumaLOG Subcutaneous 6 units am, 8units lunch, 10 units dinner. Lantus Subcutaneous. Levemir Subcutaneous 40-50units daily . Metoprolol Tartrate Oral 25 mg, BID. Nucynta Oral (Tablet 100 mg) 1 tablet, TID. Reglan Oral 10 mg, 4x a day as needed. Vit F7-IozcDk-Jjdq-FA-B6-Zn-CU Oral 50mg daily. Vit D-Vit E-Safflower Oil External 1000UNITS daily. --19:58 Carole Acevedo R.N. Morphine Sulfate Oral 1mg, 3x a day. --19:59 Carole Acevedo R.N. Percocet Oral, 2x a day. --19:59 Carole Acevedo R.N. Allergies Metformin and Related. --19:58 Carole Acevedo R.N. LIsinopril. --19:59 Carole Acevedo R.N. History Arrived by private vehicle. Historian: patient. Accompanied by family. Primary physician (Nish). ( has appt with PCP tomorrow). This started today. Onset. (at about 1400). 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 (jean claude today at 1800). PAST MEDICAL HX: Immunizations: up-to-date. SOCIAL HX: Never smoker. No alcohol use or drug use. --20:00 Carole Acevedo R.N. PROBLEMS: Hyperkalemia. Gallstone(s). Anxiety Reaction. MRSA Infection. Abd pain, N/V. Leukocytosis. Back Pain. Nerve pain. Vomiting. Abdominal Pain. Gastroparesis. Panic Attack. Hypercholesterolemia. Hypertension. Diabetes Mellitus. --20:00 Carole Acevedo R.N. ADDITIONAL SURGERIES: Cholecystectomy. Colonoscopy. Cyst removed from axilla. Endoscopy. Hysterectomy. Neck Surgery. Previous Abdominal Surgery. Rotator Cuff Surgery. Shoulder Surgery. --20:00 Carole Acevedo R.N. Interventions ID band on patient. To treatment room. --20:00 Carole Acevedo R.N. PHYSICAL ASSESSMENT Ambulatory to room. Patient gowned. GENERAL / NEURO / PSYCH: Oriented X 4. Appears in no acute distress. Appears in pain. HEENT: Mucous membranes are pink. RESPIRATORY: Respirations not labored. CVS: Capillary refill less than 2 seconds. SKIN: Skin is warm and dry. --20:01 Carole Acevedo R.N. NURSING PROGRESS NOTES Head of bed elevated. Two patient identifiers checked. Call light placed in reach. Side rails up x 1. Bed placed in lowest position. Brakes of bed on. --20:01 Carole Acevedo R.N. Patient ready for evaluation- chart flagged. --20:01 Carole Acevedo R.N. 20:10 08/13/2016 Two (2) unsuccessful IV access attempts including the right antecubital space and hand. Applied bandage and manual pressure. --20:13 Carole Acevedo R.N. Patient transported to radiology by stretcher with tech. (20:12). --20:13 Carole Acevedo R.N. EKG time: (2009). EKG was ordered, performed by a tech and shown to the ED physician and PA. --20:15 Angelo Barakat, ER Shotgun Shell Assembly Machine Operator 20:40 08/13/2016 Two (2) unsuccessful IV access attempts including the right upper arm and left hand. Applied bandage and manual pressure (2 IV attempts made with US guidance.). --20:47 Carole Acevedo R.N. 20:42 08/13/2016 Site #1 started via IV in the right foot with an 22g angiocath, with aseptic technique and good blood return; one attempt. Saline lock flushed with 10 mL saline (UNABLE TO DRAW LABS AT TIME IF IV START, lab notified to draw blood.). --20:48 Carole Acevedo R.N. 20:42 08/13/2016 Started bag #1 1000 mL IV Fluids IV NS (Saline); at 1000 mL/hr over 1 hour(s) via site #1 via IV pump. Allergies verified and confirmed 5 rights. IV patency established. IV site checked: no pain, redness, or swelling. IV flushed thoroughly pre- and post-medication administration. --20:48 Carole Acevedo R.N. 20:43 08/13/2016 Reglan (Metoclopramide HCl) IVP 10 mg given over 2 minute(s) via site #1. Allergies verified and confirmed 5 rights. IV patency established. IV site checked: no pain, redness, or swelling. IV flushed thoroughly pre- and post-medication administration. IVP given by RN. --20:49 Carole Acevedo R.N. 20:49- cardiopulmonary technician at bedside to draw blood. --20:49 Carole Acevedo R.N. professor of poultry science, pulse oximeter and NIBP monitor placed on patient; monitor alarms on. --20:58 Angelo Barakat, ER Shotgun [employer] Assembly Machine Operator 21:05 08/13/16. BP: 177/76 (regular adult cuff) taken on the left arm, via an automated monitor, while lying. HR: 94. RR: 14. O2 saturation: 100% on room air. Temp: 98.7 F (oral). --21:06 Angelo Barakat, ER Shotgun [employer] Assembly Machine Operator 21:21 08/13/2016 Zofran (Ondansetron HCl) IVP 8 mg given over 2 minute(s) via site #1. Allergies verified and confirmed 5 rights. IV patency established. IV site checked: no pain, redness, or swelling. IV flushed thoroughly pre- and post-medication administration. IVP given by RN. --21:27 Carole Acevedo R.N. 21:22 08/13/2016 HALDOL (Haloperidol Lactate) IVP 3 mg given over 1 minute(s) via site #1. Allergies verified, confirmed 5 rights and sedative warning given to the patient. IV patency established. IV site checked: no pain, redness, or swelling. IV flushed thoroughly pre- and post-medication administration. IVP given by RN. --21:28 Carole Acevedo R.N. 21:23 08/13/2016 Benadryl (DiphenhydrAMINE HCl) IVP 25 mg given over 1 minute(s) via site #1. Allergies verified, confirmed 5 rights and sedative warning given to the patient. IV patency established. IV site checked: no pain, redness, or swelling. IV flushed thoroughly pre- and post-medication administration. IVP given by RN. --21:29 Carole Acevedo R.N. 21:24 08/13/2016 Dilaudid (HYDROmorphone HCl PF) IVP 1 mg given over 90 second(s) via site #1. Allergies verified, confirmed 5 rights and sedative warning given to the patient. IV patency established. IV site checked: no pain, redness, or swelling. IV flushed thoroughly pre- and post-medication administration. IVP given by RN. --21:29 Carole Acevedo R.N. 21:29 08/13/16. BP: 186/82. HR: 99. RR: 15. O2 saturation: 100% on room air. Mcdowell-Vance pain scale: 4/10. --21:30 Carole Acevedo R.N. 21:42 08/13/2016 IV Fluids IV NS Discontinued: bag #1 STOPPED. Total amount infused: 1000 mL. IV patency established. IV site checked: no pain, redness, or swelling. IV flushed thoroughly. --21:44 Carole Acevedo R.N. Reassessment after medication administered. She is calm. ( pt still complains of pain but states "its better".). --22:05 Carole Acevedo R.N. Point of care testing: performed by nurse. Glucose: 245. --23:19 Ata Holman R.N. RT at bedside to draw ABG. --23:22 Carole Acevedo R.N. 23:22 08/13/16. BP: 187/94. HR: 106. RR: 15. O2 saturation: 97% on room air. Mcdowell-Vance pain scale: 4/10. --23:22 Carole Acevedo R.N. 23:25 08/13/2016 PHENERGAN (Promethazine HCl) IVP 12.5 mg given over 1 minute(s) via site #1. Allergies verified and confirmed 5 rights. IV patency established. IV site checked: no pain, redness, or swelling. IV flushed thoroughly pre- and post-medication administration. IVP given by RN. --23:27 Ata Holman R.N. 23:27 08/13/2016 Insulin Reg Subcutaneous 4 unit given. Given in the right upper arm. Allergies verified and confirmed 5 rights. --23:28 Ata Holman R.N. ( pt assisted up to BSC and back to bed. Pt tolerated well). --23:44 Carole Acevedo R.N. Patient ID band checked for patient name and birthdate: patient confirmed urine collected with return of yellow-colored urine; sample sent to lab. Specimen labeled in the presence of the patient. --23:44 Carole Acevedo R.N. 00:15 08/14/2016 Started bag #1 1000 mL IV Fluids IV NS (Saline); at 1000 mL/hr over 1 hour(s) via site #1. Allergies verified and confirmed 5 rights. IV patency established. IV site checked: no pain, redness, or swelling. IV flushed thoroughly pre- and post-medication administration. Completed per protocol. --00:15 Ata Holman R.N. 01:00 08/14/2016 PHENERGAN (Promethazine HCl) IVP 12.5 mg given over 90 second(s) via site #1. Allergies verified and confirmed 5 rights. IV patency established. IV site checked: no pain, redness, or swelling. IV flushed thoroughly pre- and post-medication administration. IVP given by RN. --01:02 Carole Acevedo R.N. 01:02 08/14/2016 Dilaudid (HYDROmorphone HCl PF) IVP 1 mg given over 90 second(s) via site #1. Allergies verified, confirmed 5 rights and sedative warning given to the patient. IV patency established. IV site checked: no pain, redness, or swelling. IV flushed thoroughly pre- and post-medication administration. IVP given by RN. --01:04 Carole Acevedo R.N. 01:52 08/14/16. BP: 129/78. HR: 95. RR: 16 (regular and unlabored). O2 saturation: 100% on room air. Mcdowell-Vance pain scale: 08/03. --01:53 Carole Acevedo R.N. DISPOSITION / DISCHARGE Report was given to a nurse via a phone call. Report included patient's care, treatment, medications, reviewed medication reconcilliation, and condition (including any recent changes or anticipated changes). All questions were answered. Report was acknowledged. (to SULMA Brown). --02:07 Carole Acevedo R.N. 01:15 08/14/2016 IV Fluids IV NS Discontinued: bag #2 completed. Total amount infused: 1000 mL. IV patency established. IV site checked: no pain, redness, or swelling. IV flushed thoroughly. --02:08 Carole Acevedo R.N. 02:08 08/14/2016 Site #[address] upon admission; flushes easily. --02:08 Carole Acevedo R.N. 02:09 08/14/16. BP: 128/79. HR: 99. RR: 15. O2 saturation: 100% on room air. Temp: 98.4 F (oral). Mcdowell-Vance pain scale: 10. --02:13 Carole Acevedo R.N. Patient's personal items include: shirt, coat and purse, slippers; items were placed in belongings bag and transported with the patient. Collection of belongings was witnessed by 1 nurse. --02:13 Carole Acevedo R.N. Transported via stretcher by transport team with IV. --02:16 Carole Acevedo R.N. Locked/Released at 08/14/2016 2:35 by Carole Acevedo R.N.
--- NOTE | 2016-08-14 02:35 | ED MAR SUMMARY ---
..... Medication Administration Record [facility] [address] [place] [address] Patient: LIZZY DORSEY Visit ID: [id number] 56y, F Weight: 86.1 kg Height/Length: 65 in BMI: 31.6 ALLERGIES: LIsinopril, Metformin and Related Start 20:08/13/2016 Carole Acevedo R.N., Stop 21:08/13/2016 Carole Acevedo R.N. Medication Administered: IV NS (SALINE), Dose: IV Fluids over 1 hour(s), Rate: 1000 mL/hr, Dispensed: 1000 mL bag, Site: #1 right foot. Medication Ordered: IV NS : initial bolus 1000 mL (1000 mL/hr), then 1000 mL/hr for X1 (NOW); Lester. Given 20:08/13/2016 Carole Acevedo R.N. Medication Administered: REGLAN [IVP] (METOCLOPRAMIDE HCL), Dose: 10 mg IVP over 2 minute(s), Site: #1 right foot. Medication Ordered: Reglan IV 10 mg (NOW). Given :08/13/2016 Carole Acevedo R.N. Medication Administered: ZOFRAN [IVP] (ONDANSETRON HCL), Dose: 8 mg IVP over 2 minute(s), Site: #1 right foot. Medication Ordered: Zofran IV 8 mg (NOW). Given 08/13/2016 Carole Acevedo R.N. Medication Administered: HALDOL [IVP] (HALOPERIDOL LACTATE), Dose: 3 mg IVP over 1 minute(s), Site: #1 right foot. Medication Ordered: Haldol IV 3 mg (HIGH ALERT MEDICATION, NOW). Given 08/13/2016 Carole Acevedo R.N. Medication Administered: BENADRYL [IVP] (DIPHENHYDRAMINE HCL), Dose: 25 mg IVP over 1 minute(s), Site: #1 right foot. Medication Ordered: Benadryl IV 25 mg (NOW). Given 08/13/2016 Carole Acevedo R.N. Medication Administered: DILAUDID [IVP] (HYDROMORPHONE HCL PF), Dose: 1 mg IVP over 90 second(s), Site: #1 right foot. Medication Ordered: Dilaudid IV 1 mg (HIGH ALERT MEDICATION, NOW). Given 23:25 08/13/2016 Ata Holman R.N. Medication Administered: PHENERGAN [IVP] (PROMETHAZINE HCL), Dose: 12.5 mg IVP over 1 minute(s), Site: #1 right foot. Medication Ordered: Phenergan IV 12.5 mg (HIGH ALERT MEDICATION, NOW). Given 23:27 08/13/2016 Ata Holman R.N. Medication Administered: INSULIN REG [SUBCUTANEOUS], Dose: 4 unit Subcutaneous. Medication Ordered: Insulin Reg Subcut 4 units (NOW). Start 00:15 08/14/2016 Ata Holman R.N., Stop 01:15 08/14/2016 Carole Acevedo R.N. Medication Administered: IV NS (SALINE), Dose: IV Fluids over 1 hour(s), Rate: 1000 mL/hr, Dispensed: 1000 mL bag, Site: #1 right foot. Medication Ordered: IV NS : initial bolus 1000 mL (1000 mL/hr), then 1000 mL/hr for X1 (NOW); Lester. Given 01:00 08/14/2016 Carole Acevedo R.N. Medication Administered: PHENERGAN [IVP] (PROMETHAZINE HCL), Dose: 12.5 mg IVP over 90 second(s), Site: #1 right foot. Medication Ordered: Phenergan IV 12.5 mg (HIGH ALERT MEDICATION, NOW). Given 01:02 08/14/2016 Carole Acevedo R.N. Medication Administered: DILAUDID [IVP] (HYDROMORPHONE HCL PF), Dose: 1 mg IVP over 90 second(s), Site: #1 right foot. Medication Ordered: Dilaudid IV 1 mg (HIGH ALERT MEDICATION, NOW).
--- NOTE | 2016-08-14 02:35 | ED DISCHARGE INSTRUCTIONS ---
Patient: LIZZY DORSEY General Instructions [facility] VisitID: [id number] [address] [place] [address] 56y, F Registration Date/Time: 08/13/2016 Type 2 diabetes with hyperglycemia. Hypertension. Intractable Emesis with Abdominal Pain. (Electronically signed by Yesica Beatty P.A.-C 08/14/2016 0:45)
--- NOTE | 2016-08-14 02:35 | ED MAR SUMMARY ---
..... Medication Administration Record [facility] [address] [place] [address] Patient: LIZZY DORSEY Visit ID: [id number] 56y, F Weight: 86.1 kg Height/Length: 65 in BMI: 31.6 ALLERGIES: LIsinopril, Metformin and Related Start 20:08/13/2016 Carole Acevedo R.N., Stop 21:08/13/2016 Carole Acevedo R.N. Medication Administered: IV NS (SALINE), Dose: IV Fluids over 1 hour(s), Rate: 1000 mL/hr, Dispensed: 1000 mL bag, Site: #1 right foot. Medication Ordered: IV NS : initial bolus 1000 mL (1000 mL/hr), then 1000 mL/hr for X1 (NOW); Lester. Given 20:08/13/2016 Carole Acevedo R.N. Medication Administered: REGLAN [IVP] (METOCLOPRAMIDE HCL), Dose: 10 mg IVP over 2 minute(s), Site: #1 right foot. Medication Ordered: Reglan IV 10 mg (NOW). Given :08/13/2016 Carole Acevedo R.N. Medication Administered: ZOFRAN [IVP] (ONDANSETRON HCL), Dose: 8 mg IVP over 2 minute(s), Site: #1 right foot. Medication Ordered: Zofran IV 8 mg (NOW). Given 08/13/2016 Carole Acevedo R.N. Medication Administered: HALDOL [IVP] (HALOPERIDOL LACTATE), Dose: 3 mg IVP over 1 minute(s), Site: #1 right foot. Medication Ordered: Haldol IV 3 mg (HIGH ALERT MEDICATION, NOW). Given 08/13/2016 Carole Acevedo R.N. Medication Administered: BENADRYL [IVP] (DIPHENHYDRAMINE HCL), Dose: 25 mg IVP over 1 minute(s), Site: #1 right foot. Medication Ordered: Benadryl IV 25 mg (NOW). Given 08/13/2016 Carole Acevedo R.N. Medication Administered: DILAUDID [IVP] (HYDROMORPHONE HCL PF), Dose: 1 mg IVP over 90 second(s), Site: #1 right foot. Medication Ordered: Dilaudid IV 1 mg (HIGH ALERT MEDICATION, NOW). Given 23:25 08/13/2016 Ata Holman R.N. Medication Administered: PHENERGAN [IVP] (PROMETHAZINE HCL), Dose: 12.5 mg IVP over 1 minute(s), Site: #1 right foot. Medication Ordered: Phenergan IV 12.5 mg (HIGH ALERT MEDICATION, NOW). Given 23:27 08/13/2016 Ata Holman R.N. Medication Administered: INSULIN REG [SUBCUTANEOUS], Dose: 4 unit Subcutaneous. Medication Ordered: Insulin Reg Subcut 4 units (NOW). Start 00:15 08/14/2016 Ata Holman R.N., Stop 01:15 08/14/2016 Carole Acevedo R.N. Medication Administered: IV NS (SALINE), Dose: IV Fluids over 1 hour(s), Rate: 1000 mL/hr, Dispensed: 1000 mL bag, Site: #1 right foot. Medication Ordered: IV NS : initial bolus 1000 mL (1000 mL/hr), then 1000 mL/hr for X1 (NOW); Lester. Given 01:00 08/14/2016 Carole Acevedo R.N. Medication Administered: PHENERGAN [IVP] (PROMETHAZINE HCL), Dose: 12.5 mg IVP over 90 second(s), Site: #1 right foot. Medication Ordered: Phenergan IV 12.5 mg (HIGH ALERT MEDICATION, NOW). Given 01:02 08/14/2016 Carole Acevedo R.N. Medication Administered: DILAUDID [IVP] (HYDROMORPHONE HCL PF), Dose: 1 mg IVP over 90 second(s), Site: #1 right foot. Medication Ordered: Dilaudid IV 1 mg (HIGH ALERT MEDICATION, NOW).
--- NOTE | 2016-08-14 02:35 | ED DISCHARGE INSTRUCTIONS ---
Patient: LIZZY DORSEY General Instructions [facility] VisitID: [id number] [address] [place] [address] 56y, F Registration Date/Time: 08/13/2016 Type 2 diabetes with hyperglycemia. Hypertension. Intractable Emesis with Abdominal Pain. (Electronically signed by Yesica Beatty P.A.-C 08/14/2016 0:45)
--- NOTE | 2016-08-14 02:36 | ED MED RECONCILIATION SUMMARY ---
Patient: LIZZY DORSEY Medication Reconciliation Report [facility] VisitID: [id number] [address] [place] [address] 56y, F Registration Date/Time: 08/13/2016 Weight: 86.1 kg Height/Length: 65 in. BMI: 31.6 ALLERGIES: LIsinopril, Metformin and Related The patient's Home Medications are listed below: THE FOLLOWING MEDICATIONS NEED TO BE RECONCILED: Albuterol Sulfate Inhalation 2 puffs, EERY 6 HOURS NEEDED Colace Oral 100 mg, 2 tabs BID Cymbalta Oral 60mg, daily Gabapentin Oral 1 in am, 2 at HS HumaLOG Subcutaneous 6 units am, 8units lunch, 10 units dinner Lantus Subcutaneous Levemir Subcutaneous 40-50units daily Metoprolol Tartrate Oral 25 mg, BID Morphine Sulfate Oral 1mg, 3x a day Nucynta Oral (100 mg) 1 tablet, TID Percocet Oral, 2x a day Reglan Oral 10 mg, 4x a day Vit [id number] Oral 50mg daily Vit D-Vit E-Safflower Oil External 1000UNITS daily The source(s) of the original Home Medication information: Not obtained. The following Medications were given to the patient in the Emergency Department: IV NS IV Fluids bolus 0, then 1000 mL/hr, administered: 08/13/2016 8:42:00 PM Reglan [IVP] IVP 10 mg, administered: 08/13/2016 8:43:00 PM Zofran [IVP] IVP 8 mg, administered: 08/13/2016 9:21:00 PM HALDOL [IVP] IVP 3 mg, administered: 08/13/2016 9:22:00 PM Benadryl [IVP] IVP 25 mg, administered: 08/13/2016 9:23:00 PM Dilaudid [IVP] IVP 1 mg, administered: 08/13/2016 9:24:00 PM PHENERGAN [IVP] IVP 12.5 mg, administered: 08/13/2016 11:25:00 PM Insulin Reg [Subcutaneous] Subcutaneous 4 unit, administered: 08/13/2016 11:27:00 PM IV NS IV Fluids bolus 0, then 1000 mL/hr, administered: 08/14/2016 12:15:00 AM PHENERGAN [IVP] IVP 12.5 mg, administered: 08/14/2016 1:00:00 AM Dilaudid [IVP] IVP 1 mg, administered: 08/14/2016 1:02:00 AM The following Medications were prescribed to the patient: None.
--- NOTE | 2016-08-14 02:36 | ED MED RECONCILIATION SUMMARY ---
Patient: LIZZY DORSEY Medication Reconciliation Report [facility] VisitID: [id number] [address] [place] [address] 56y, F Registration Date/Time: 08/13/2016 Weight: 86.1 kg Height/Length: 65 in. BMI: 31.6 ALLERGIES: LIsinopril, Metformin and Related The patient's Home Medications are listed below: THE FOLLOWING MEDICATIONS NEED TO BE RECONCILED: Albuterol Sulfate Inhalation 2 puffs, EERY 6 HOURS NEEDED Colace Oral 100 mg, 2 tabs BID Cymbalta Oral 60mg, daily Gabapentin Oral 1 in am, 2 at HS HumaLOG Subcutaneous 6 units am, 8units lunch, 10 units dinner Lantus Subcutaneous Levemir Subcutaneous 40-50units daily Metoprolol Tartrate Oral 25 mg, BID Morphine Sulfate Oral 1mg, 3x a day Nucynta Oral (100 mg) 1 tablet, TID Percocet Oral, 2x a day Reglan Oral 10 mg, 4x a day Vit [id number] Oral 50mg daily Vit D-Vit E-Safflower Oil External 1000UNITS daily The source(s) of the original Home Medication information: Not obtained. The following Medications were given to the patient in the Emergency Department: IV NS IV Fluids bolus 0, then 1000 mL/hr, administered: 08/13/2016 8:42:00 PM Reglan [IVP] IVP 10 mg, administered: 08/13/2016 8:43:00 PM Zofran [IVP] IVP 8 mg, administered: 08/13/2016 9:21:00 PM HALDOL [IVP] IVP 3 mg, administered: 08/13/2016 9:22:00 PM Benadryl [IVP] IVP 25 mg, administered: 08/13/2016 9:23:00 PM Dilaudid [IVP] IVP 1 mg, administered: 08/13/2016 9:24:00 PM PHENERGAN [IVP] IVP 12.5 mg, administered: 08/13/2016 11:25:00 PM Insulin Reg [Subcutaneous] Subcutaneous 4 unit, administered: 08/13/2016 11:27:00 PM IV NS IV Fluids bolus 0, then 1000 mL/hr, administered: 08/14/2016 12:15:00 AM PHENERGAN [IVP] IVP 12.5 mg, administered: 08/14/2016 1:00:00 AM Dilaudid [IVP] IVP 1 mg, administered: 08/14/2016 1:02:00 AM The following Medications were prescribed to the patient: None.
--- NOTE | 2016-08-14 03:20 | NUR ---
NEW ADMIT FROM ED AT 0236. PT BROUGHT UP VIA STRETCHER BY FACILITY TECH. PT ABLE TO STAND AND WALK TO THE BED WITH ANY PROBLEMS. PT STEADY ON FEET, DENIES ANY DIZZINESS, OR LIGHT HEADEDNESS. PT IS ALERT AND ORIENTED, COOPERATIVE WITH CARE. PT DENIES ANY CHEST PAIN, NAUSEA, AND VOMITING. PT STATED SHE IS A " LITTLE SOB." PT STATED THAT SHE CURRENTLY HAS A RASH UNDER THE RIGHT BREAST. UNDER RIGHT BREAST WASHING WARM WIPES, AND CREAM APPLIED. PICTURE TAKEN AND PLACED IN CHART. IV IS IN THE RIGHT FOOT. IV FLUSHES WELL. IV DRESSING REINFORCED, AND WRAPPED WITH COBAN. PT GIVEN 1 MG IV DILAUDID FOR PAIN. 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 BED IN LOWEST POSITION, CALL LIGHT IN REACH WCTM.
--- NOTE | 2016-08-14 03:22 | Progress Note ---
Subjective General General Admission History and Physical Examination Patient Name: Felix Booker Admission Date: August 14, 2016 Primary Care Provider: Dr. Olivarez Attending Physician: Tesfaye Calderon M.D. Admitting Physician: Tesfaye Calderon M.D. Code Status: Full Code Room: SUBJECTIVE Historian: Patient Reliability: Good Chief Complaint: Abdominal pain intractable vomiting diabetes History of Present Illness: The patient is a 56-year-old white female wit significant past medical history diabetes melitis with associated gastroparesis, hypertension, neuropathies, anxiety disorder, GERD, depression, hyperlipidemia who presented to [facility] emergency department on the day of admission secondary to complaints of abdominal pain, nausea, vomiting, worsening over the past 3 weeks. and tingling involving the left hand, mostly the middle finger, along with bleeding visual loss and changes. Patient first began having noticeable subjectivenearly 3 weeks before being seen in the ED. Patient had worsening appetite with associated vomiting with by mouth.. Secondary to the above, the patient was admitted by Tesfaye Calderon MD for further evaluation and treatment. The history of present illness began within 3 weeks prior to the day of admission. today, Patient began having worsening abdominal pain with associated vomiting. Patient was therefore brought in for further evaluation. when the patient noted this afternoon that she was experiencing a numbing sensation in the left hand. she reports that she is not able to reduce symptoms on her own and therefore needs further assistance. Patient is complaining of abdominal pain to the left of the epigastric region. Patient reports that the pain is more likely related to her gasping 2 paresis. Patient has been limited in her eating habits. Patient taking Compazine and Zofran as needed. She reports that she had 11 episodes of emesis this morning. Patient states that her blood sugars not been as tightly controlled as in the past. Patient is taking 50 units of Levemir and sliding scale for the NovoLog. PAST MEDICAL HISTORY Illnesses: 1. Diabetes mellitus 2. HLD 3. Gastroparesis. 4. Depression, 5. Chronic pain Allergies: 1. Metformin Medications: 1. Alprazolam 0.5 mg daily 2. Citalopram 20 mg daily 3. Clonidine 0.1 mg twice a day 4. Gabapentin 100 mg a.m., 200 mg p.m. by mouth daily 5. Lantus 50 units subcutaneous daily 6. Lisinopril 60 mg daily 7. Metoprolol 50 mg daily 8. NovoLog sliding scale . 9. Omeprazole 20 mg daily 10. Promethazine rectal suppository as needed 11. Simvastatin 20 mg daily. 12. Zofran 4 mg given daily.. Surgery: 1. Bilateral carpal tunnel release 2 2) ulnar nerve at the ulnar groove 1 3) left hand bony segment repair. Injuries: 1. Overuse injuries, bilateral hands Hospitalizations: 1. For above medical problems FAMILY HISTORY Parents: 1. Father, history of stroke, heart disease 2. Mother: SOCIAL HISTORY 1. Marital Status: 2. Adventist: none preferred. 3. Education: High school and more 4. Employment History:retired 5. Occupational health exposures: none known. HABITS 1. Tobacco: No history smoking 2. Drugs: None 3. Alcohol: None HEALTH SUPERVISION Item/Test 1. Not reviewed IMMUNIZATIONS: 1. Pneumococcal: Unknown 2. Influenza: Unknown 3. Tetanus: Unknown REVIEW OF SYSTEMS Remarkable for those things stated in the history of present illness and past medical history. Seventeen point review of system completed with the following notable findings: General: fatigue, abdominal pain ENT: no changes Nose: non drainage, Respiratory: no cough, wheezing, Cardiovascular:, no shortness of breath Musculoskeletal: neck, hand and headaches. Neurologic: visual changes. Psychological: insomnia, anxiety, Physical Exam Vital Signs / I&Os Vital Signs Date Time Temp Pulse Resp B/P Pulse O2 O2 Flow FiO2 Ox Delivery Rate 08/14 0240 Nasal 1.0 Cannula 08/14 0236 98.2 101 20 134/72 100 Nasal 2.0 Cannula General Appearance Oriented X3, Cooperative, Mild distress HEENT PERRLA, EOMI Lungs Clear to auscultation, Normal air movement Neck Supple Cardiovascular Regular rate and rhythm, Normal S1 and S2 Abdomen tenderness is noted on the epigastric into the left middle part of the abdomen, no guarding. Hyperactive bowel sounds. No bruits noted. No organomegaly Skin No Breakdown Neurological Cranial nerves intact Psych/Mental Status Mental status normal, Mood normal LAB Results Laboratory Tests 08/13 08/13 08/13 2100 2100 2236 Blood Gas Sample Site RR Total CO2 (24.0 - 30.0 mmol/L) 29.3 ABG pH (7.35 - 7.45) 7.50 ABG pCO2 at Pt Temp (35 - 45 mmHg) 36.5 ABG pO2 at Pt Temp (80.0 - 100.0 mmHg) 92.5 ABG HCO3 (20.0 - 26.0 mmol/L) 28.2 ABG O2 Sat Calc/Nelson (95.1 - 100.0 %) 97.9 ABG Base Excess (-6.0 - -6.0 mmol/L) 4.7 ABG Reduced Hgb (%) 2.1 ABG Carboxyhemoglobin (0.5 - 1.5 %) 1.2 ABG Methemoglobin (0.4 - 1.5 %) 0.2 Scar Test YES Other Total Hgb (12.0 - 16.0 g/dL) 13.0 A-a O2 Gradient (7.0 - 14.0 mmHg) 17.1 Hgb O2 Saturation (95.0 - 100.0 %) 96.5 Respiration Rate (/MIN) 20 Vent Mode RA FiO2 (20 - 101 %) 21 Chemistry Plasma Sodium (136 - 145 mmol/L) 140 Plasma Potassium (3.5 - 5.1 mmol/L) 3.4 Plasma Chloride (98 - 107 mmol/L) 100 CO2 (Enzymatic) (21 - 32 mmol/L) 25 BUN (7 - 18 mg/dL) 28 Creatinine (0.6 - 1.3 mg/dL) 1.6 Est GFR ( Amer) (mL/min) 42.80 Est GFR (Non-Af Amer) (mL/min) 35.31 Glucose (70 - 110 mg/dL) 299 Plasma Calcium (8.5 - 10.1 mg/dL) 9.4 Plasma Magnesium (1.8 - 2.4 mg/dL) 1.7 Total Bilirubin (0.0 - 1.0 mg/dL) 0.7 AST (15 - 37 U/L) 12 ALT (12 - 78 U/L) 20 Alkaline Phosphatase (46 - 116 U/L) 161 Creatine Kinase (24 - 260 U/L) 51 Troponin (0.00 - 1.5 ng/mL) <0.05 Total Protein (6.4 - 8.2 g/dL) 7.7 Albumin (3.3 - 5.0 g/dL) 3.7 Procalcitonin (0 - 0.5 ng/mL) < 0.05 Coagulation INR (0.8 - 1.2) 1.0 APTT (24 - 34 SECONDS) 26 Hematology WBC (4.5 - 11.5 K/uL) 17.0 RBC (4.00 - 5.20 M/uL) 4.92 Hgb (12.0 - 16.0 gm/dL) 13.8 Hct (36.0 - 46.0 %) 41.9 MCV (80 - 100 fL) 85 MCH (26 - 34 pg) 28 RDW (11.6 - 14.8 %) 13.1 Neut % (Auto) (50 - 75 %) 75.5 Lymph % (Auto) (25 - 40 %) 19.0 Lane % (Auto) (3 - 14 %) 5.0 Eos % (Auto) (0 - 4 %) 0.2 Baso % (Auto) (0 - 2 %) 0.3 Plt Count, EDTA (150 - 400 K/uL) 405 PUBS MCHC (31 - 37 g/dL) 33 Toxicology Acetone, Qual (NEGATIVE) POSITIVE 08/13 2338 Urines Urine Color YELLOW Urine Appearance CLEAR Urine pH (5.0 - 8.0) 5.5 Ur Specific [place] (1.010 - 1.030) >= 1.030 Urine Protein (NEGATIVE) 2+ Urine Ketones (NEGATIVE) 2+ Urine Blood (NEGATIVE) 1+ Urine Nitrite (NEGATIVE) NEGATIVE Ur Bilirubin Confirm (NEGATIVE) NEGATIVE Urine Urobilinogen (0.2 - 1.0 EU/dL) 0.2 Ur Leukocyte Esterase (NEGATIVE) NEGATIVE Urine RBC (0 - 1 rbc/hpf) 1-3 Urine WBC (0 - 1 wbc/hpf) 0-1 Ur Epithelial Cells (0 - 5 EPI/hpf) >15 Urine Bacteria (NONE SEEN) FEW (1+) Urine Glucose (NEGATIVE) TRACE Urine Comment CULT NOT INDICATED Imaging PROCEDURE: CT ABDOMEN/PELVIS W/O CONTRAST IMPRESSION: 1. No acute process. 2. Minor diverticulosis without diverticulitis. 3. Very slight enlargement of the right adrenal adenoma. 4. Post hysterectomy and cholecystectomy. XR ABD SERIES 2V ABD/1V CHEST IMPRESSION: 1. Status post cholecystectomy. 2. Moderate degenerative changes and probable fusion of the lower lumbar spine. 3. Otherwise negative abdomen. 4. Postoperative changes and fusion of the upper thoracic spine. 5. Otherwise negative chest. Assessment and Plan Problem List 1. Dehydration Plan Plan to maintain and improve the hydration status. Starting on normal saline at 100 cc per hour running for the next 24 hours. Along with the fluid hydration and correction of the sugars through insulin. Review of follow-up on labs in the a.m. 2. Abdominal pain Plan Abdominal pain. Upper GI Gastroparesis secondary to DMs. Attempt to improve on pain control and improve the fluid status. 3. Hyperglycemia Plan Return to the 50 units of Lantus in the evening. Watching the sliding scale NovoLog. Patient will need to improve oral intake and from there the NovoLog will be more balanced to control the BS. Dietary influences. Educational standards need to be employed. 4. Gastroparesis Plan Improve on GI motility. Patient is on bowel regimen at home. May need to add additional lactulose to increase the overall sense of well-being. 5. Intractable vomiting Plan Monitor gastroparesis; gain the appropriate fluid balance. E&M Codes Roundin
[2016-08-14] MEDS ORDERED: ALBUTEROL SUL0.083 % IN (03:49)
[2016-08-14] MEDS ORDERED: CYMBALTA60 MG PO (03:50)
[2016-08-14] MEDS ORDERED: GABAPENTIN100 MG PO ×2 (03:50→03:58)
[2016-08-14] MEDS ORDERED: HUMALOG100 MG/ML (03:58)
[2016-08-14] MEDS ORDERED: LANTUS SOL100 UNITS/ SC (03:59)
[2016-08-14] MEDS ORDERED: LOPRESSOR25 MG PO (03:59)
[2016-08-14] MEDS ORDERED: REGLAN10 MG PO (04:00)
[2016-08-14] MEDS ORDERED: NUCYNTA100 MG PO (04:00)
[2016-08-14] MEDS ORDERED: [UNRECOGNIZED DRUG - OTHER] (04:02)
[2016-08-14] MEDS ORDERED: MORPHINE SULFATE5 MG PO (04:03)
[2016-08-14] MEDS ORDERED: PERCOCET1 TA1 PO (04:03)
[2016-08-14] MEDS ORDERED: VITAMIN B3 (04:05)
--- NOTE | 2016-08-14 04:52 | NUR ---
DR. VELASCO PRESENT ON UNIT. MD INFORMED THAT PATIENT HAS A RASH UNDER RIGHT BREAST. MD ORDERED NYSTATIN. ORDER READ BACK AND WRITTEN IN CHART.
--- NOTE | 2016-08-14 08:00 | Progress Note ---
Subjective General Note Date: August 14, 2016 Admission Date: August 14, 2016 Hospital Day: 1 PCP: Tunde Olivarez M.D. Status: Inpatient Advanced Directive: FULL CODE Room: 211 Brief History: The patient is a 56-year-old white female wit significant past medical history diabetes melitis with associated gastroparesis, hypertension, neuropathies, anxiety disorder, GERD, depression, hyperlipidemia who presented to [facility] emergency department on the day of admission secondary to complaints of abdominal pain, nausea, vomiting, worsening over the past 3 weeks. and tingling involving the left hand, mostly the middle finger, along with bleeding visual loss and changes. Patient first began having noticeable subjectivenearly 3 weeks before being seen in the ED. Patient had worsening appetite with associated vomiting with by mouth.. Secondary to the above, the patient was admitted by Tesfaye Calderon MD for further evaluation and treatment. For other history present illness, past medical history, family history, social history, review of systems, and admission physical examination please see the patient's history and physical examination and ER visit note in the patient's medical record. Subjective: The patient states her status is significantly improved. No further vomiting. Nausea improved. If breakfast and one tooth without problems. Persistent pain but stable Patient requests: No specific requests Medications and Allergies Medications Current Medications Sig/Julián Start time Last Medication Dose Route Stop Time Status Admin Alprazolam 0.5 MG DAILY 08/14 899 AC PO Citalopram 20 MG DAILY 08/14 899 AC Hydrobromide PO Enoxaparin Sodium 40 MG DAILY 08/14 899 AC SC Lisinopril 60 MG DAILY 08/14 899 AC PO Metoprolol Succinate 50 MG DAILY 08/14 899 AC PO Nystatin See Dose BID 08/14 09 AC Insts (1) TOP Insulin Human Lispro See Dose ACHS 08/14 0730 AC Insts (2) SC Pantoprazole Sodium 40 MG DAILY@0600 08/14 0600 AC 08/14 Sesquihydrate PO 0529 Dextrose See Dose Q15MIN PRN 08/14 0445 AC Insts (3) IV Dextrose See Dose Q15MIN PRN 08/14 0445 AC Insts (4) PO Dextrose/Water 1,000 ML ASDIRECTED PRN 08/14 0445 AC IV Glucagon 1 MG Q15MIN PRN 08/14 0445 AC IM Hydromorphone HCl 1 MG Q3H PRN 08/14 030 AC 08/14 IV 0553 Promethazine HCl 12.5 MG Q6H PRN 08/14 299 AC VA Clonidine HCl 0.1 MG BID 08/14 254 AC 08/14 PO 033 Gabapentin 100 MG BID 08/14 254 AC 08/14 PO 0333 Acetaminophen 650 MG Q6H PRN 08/14 214 AC PO Ondansetron HCl 4 MG Q6H PRN 08/14 214 AC IV Sodium Chloride 1,000 ML ASDIRECTED 08/14 214 AC 08/14 IV 0259 Dose Instructions: (1)Nystatin: TO UNDER RIGHT BREAST (2)Insulin Human Lispro: LOW DOSE: ACCUCHECK AND SLIDING SCALE >>To change sliding scale DISCONTINUE this order and enter a NEW order. Thanks< (3)Dextrose: 25 OR 50 ML SEE ADMIN CRITERIA (4)Dextrose: 1 OR 2 TUBES SEE ADMIN CRITERIA Allergies Coded Allergies: Lisinopril (Mild, COUGH 08/14/16) Metformin (09/30/13) Tomato (Intermediate, BLISTERS MOUTH 02/03/14) Physical Exam Vital Signs / I&Os Vital Signs Date Time Temp Pulse Resp B/P Pulse O2 O2 Flow FiO2 Ox Delivery Rate 08/14 0636 97.7 71 18 103/66 99 Nasal 1.0 Cannula 08/14 0240 Nasal 1.0 Cannula 08/14 0236 98.2 101 20 134/72 100 Nasal 2.0 Cannula General Appearance Alert, Oriented X3, Cooperative, No acute distress Lungs Clear to auscultation, Normal air movement Cardiovascular Regular rate and rhythm, Normal S1 and S2 Abdomen Normal bowel sounds, Soft, minimal diffuse tenderness. No rebound. Extremities No cyanosis, No clubbing Neurological Cranial nerves intact, No lateralizing signs Psych/Mental Status Mental status normal, Mood normal LAB Results Laboratory Tests 08/14 08/13 08/13 08/13 0520 2332 2026 2100 Blood Gas Sample Site RR Total CO2 (24.0 - 30.0 mmol/L) 29.3 ABG pH (7.35 - 7.45) 7.50 ABG pCO2 at Pt Temp (35 - 45 mmHg) 36.5 ABG pO2 at Pt Temp (80.0 - 100.0 mmHg) 92.5 ABG HCO3 (20.0 - 26.0 mmol/L) 28.2 ABG O2 Sat Calc/Nelson (95.1 - 100.0 %) 97.9 ABG Base Excess (-6.0 - -6.0 mmol/L) 4.7 ABG Reduced Hgb (%) 2.1 ABG Carboxyhemoglobin (0.5 - 1.5 %) 1.2 ABG Methemoglobin (0.4 - 1.5 %) 0.2 Scar Test YES Other Total Hgb (12.0 - 16.0 g/dL) 13.0 A-a O2 Gradient (7.0 - 14.0 mmHg) 17.1 Hgb O2 Saturation (95.0 - 100.0 %) 96.5 Respiration Rate (/MIN) 20 Vent Mode RA FiO2 (20 - 101 %) 21 Chemistry Triglycerides (30 - 200 mg/dL) 124 Cholesterol (140 - 200 mg/dL) 108 LDL Cholesterol, Calc (mg/dL) 41 HDL Cholesterol (32 - 96 mg/dL) 43 LDL/HDL Ratio 1.0 Cholesterol/HDL Ratio 2.5 Coronary Risk Interp (0.4 - 1.0) 0.4 Procalcitonin (0 - 0.5 ng/mL) < 0.05 Urines Urine Color YELLOW Urine Appearance CLEAR Urine pH (5.0 - 8.0) 5.5 Ur Specific [place] (1.010 - 1.030) >= 1.030 Urine Protein (NEGATIVE) 2+ Urine Ketones (NEGATIVE) 2+ Urine Blood (NEGATIVE) 1+ Urine Nitrite (NEGATIVE) NEGATIVE Ur Bilirubin Confirm (NEGATIVE) NEGATIVE Urine Urobilinogen (0.2 - 1.0 EU/dL) 0.2 Ur Leukocyte Esterase (NEGATIVE) NEGATIVE Urine RBC (0 - 1 rbc/hpf) 1-3 Urine WBC (0 - 1 wbc/hpf) 0-1 Ur Epithelial Cells (0 - 5 EPI/hpf) >15 Urine Bacteria (NONE SEEN) FEW (1+) Urine Glucose (NEGATIVE) TRACE Urine Comment CULT NOT INDICATED 08/13 2099 Chemistry Plasma Sodium (136 - 145 mmol/L) 140 Plasma Potassium (3.5 - 5.1 mmol/L) 3.4 Plasma Chloride (98 - 107 mmol/L) 100 CO2 (Enzymatic) (21 - 32 mmol/L) 25 BUN (7 - 18 mg/dL) 28 Creatinine (0.6 - 1.3 mg/dL) 1.6 Est GFR ( Amer) (mL/min) 42.80 Est GFR (Non-Af Amer) (mL/min) 35.31 Glucose (70 - 110 mg/dL) 299 Plasma Calcium (8.5 - 10.1 mg/dL) 9.4 Plasma Magnesium (1.8 - 2.4 mg/dL) 1.7 Total Bilirubin (0.0 - 1.0 mg/dL) 0.7 AST (15 - 37 U/L) 12 ALT (12 - 78 U/L) 20 Alkaline Phosphatase (46 - 116 U/L) 161 Creatine Kinase (24 - 260 U/L) 51 Troponin (0.00 - 1.5 ng/mL) <0.05 Total Protein (6.4 - 8.2 g/dL) 7.7 Albumin (3.3 - 5.0 g/dL) 3.7 Coagulation INR (0.8 - 1.2) 1.0 APTT (24 - 34 SECONDS) 26 Hematology WBC (4.5 - 11.5 K/uL) 17.0 RBC (4.00 - 5.20 M/uL) 4.92 Hgb (12.0 - 16.0 gm/dL) 13.8 Hct (36.0 - 46.0 %) 41.9 MCV (80 - 100 fL) 85 MCH (26 - 34 pg) 28 RDW (11.6 - 14.8 %) 13.1 Neut % (Auto) (50 - 75 %) 75.5 Lymph % (Auto) (25 - 40 %) 19.0 [place] % (Auto) (3 - 14 %) 5.0 Eos % (Auto) (0 - 4 %) 0.2 Baso % (Auto) (0 - 2 %) 0.3 Plt Count, EDTA (150 - 400 K/uL) 405 PUBS MCHC (31 - 37 g/dL) 33 Toxicology Acetone, Qual (NEGATIVE) POSITIVE Imaging Abdomen/chest X-Ray IMPRESSION: 1. Status post cholecystectomy. 2. Moderate degenerative changes and probable fusion of the lower lumbar spine. 3. Otherwise negative abdomen. 4. Postoperative changes and fusion of the upper thoracic spine. 5. Otherwise negative chest. Dictated by: GENE TILLEY MD D: KOLBY;08/13/[address] Abdomen and Pelvis IMPRESSION: 1. No acute process. 2. Minor diverticulosis without diverticulitis. 3. Very slight enlargement of the right adrenal adenoma. 4. Post hysterectomy and cholecystectomy. 5. Findings called to the emergency room. Dictated by: JAMES ALVARADO MD D: SHARON;08/13/16 9511 Assessment and Plan Problem List 1. Gastroparesis Plan -Patient with history of diabetic gastroparesis -Symptoms resolved at this time. -Patient denies significant nausea and has not experienced any vomiting today -Monitor -Continue present therapy 2. Intractable vomiting Plan -Resolved 3. Dehydration Plan -Improved -Vigorous IV fluid therapy today. -Monitor renal function -Patient with findings of hypertension. We will hold antihypertensive medications -Monitor 4. Hypotension Status Acute Onset Date 08/14/16 Plan -Patient exhibited hypotension today. -Not associated with tachycardia -Follow administration of antihypertensive medications -Hold antihypertensives -IV fluid bolus as necessary -Increase IV fluid rate -Monitor 5. Diabetes mellitus Status Chronic Onset Date Unknown Plan -Patient with history of diabetes mellitus -Continue present therapy -Blood sugar mildly elevated. -Continue Lantus insulin with insulin sliding scale 6. Abdominal pain Plan -Status post stable to improved -Continue present therapy Current status: Fair, improved Anticipated discharge date: Anticipated discharge in 1-2 days Anticipated discharge placement: Home Patient care time: Time spent in chart review, patient interview, physical exam, CPOE, and care documentation: 25 minutes Visit to patient today: 2 Complexity of care: Moderate E&M Codes Rounding: Inpt-Moderate/[id number]
--- NOTE | 2016-08-14 10:51 | NUR ---
Nutrition Assessment: Pt is a 56 yo female admitted on 08/14 w/ hyperglycemia, gastroparesis, intractable vomiting. PMH includes but not limited to: DM associated w/ gastroparesis, HTN, neuropathies, anxiety disorder, GERD, depression, hyperlipidemia. Presented to [facility] ED w/ complaints of abdominal pain, nausea, and vomiting worsening over the past 3 wks w/ tingling in left hand and fingers and visual changes. Pt reported worsening appetite and vomiting. Pt reports BG levels have not been tightly controlled as they have been in the past. Pt taking Levemir and sliding scale Novolog at home. Attempted to meet w/ pt this am to provide DM education and assess for nutritional needs, although pt peacefully resting at this time. Will attempt again once pt feeling better. Diet: CCD, Allergies: Tomato (blisters in mouth) Wts: 181#, ht: 5'5", BMI: 30.1, IBW: 125#, Adj IBW: 140#, %IBW: 139% Est kcals: 3038-8588/day Est Pro: 60-75g/day Est fluids: ~ 2L/day Meds incl: Gabapentin, Insulin lispro, lisinopril, metoprolol, pantoprazole (Home meds: Levemir and Novolog sliding scale) Labs: 08/13: BG 299, BUN: 28, Creatinine: 1.6, K: 3.4, M.7, Alkaline phosphatase: 161, AST: 12, WBC: 17.0 Skin: Eric score: 21, rash under right breast noted A: Pt's PO intake shows 50% Bkfst on CCD diet. Rev'd meds and labs. BG levels high and on insulin support. Pt reported poor control of BG levels at home. CBW>IBW, BMI 30.1. Some gradual wt loss to IBW/ABW above may be beneficial after healing complete/pt medically stable. Rec. continue CCD diet. P: Continue CCD diet. Pt may benefit from sugar-free supplement drinks to support PO intake. Will attempt to provide DM nutrition education once pt's condition improves/feeling better.
--- NOTE | 2016-08-14 11:02 | NUR ---
10 A.M. VITALS REVEALED LOW BP, THIS NURSE MANUALLY CHECKED AND WAS 80/42. NOTIFIED DR. BARROS, 500CC BOLUS GIVEN OVER 30 MINUTES, RECHECKED VITALS AND NO CHANGE, NOTIFIED DR. BARROS, JUST BEGAN 2ND 500CC BOLUS OF NS. PT. DENIES SXS OF DIZZINESS, LIGHTHEADEDNESS, CP OR PALPITATIONS OR SOB. WILL RECHECK AFTER 2ND BOLUS AGAIN, WCTM
--- NOTE | 2016-08-14 13:49 | NUR ---
PT. BP LOW, NOTIFIED, JUST STARTED 3RD BOLUS OF NS 500CC - WILL CONTINUE TO MONITOR URINE OP, BLADDER SCAN REVEALED 70-90CC. PT. DENIES DIZZINESS, CP, PALPITATIONS OR SOB, DOES STATE THAT SHE FEELS "A LITTLE TIRED AND WEAK" WCTM
--- NOTE | 2016-08-14 15:30 | NUR ---
continuing to bolus patient, md made aware of current bp after 4th 500cc ns bolus, 5th bolus ordered, oncoming nurse aware of order and to initiate. labs back and stable, wctm
--- NOTE | 2016-08-14 16:15 | NUR ---
B/P DOWN TO 84/50. DR BARROS NOTIFIED AND NEW ORDERS TO BOLUS 500cc NS OVER 30 MIN. LS CLEAR. HRR @ [address]DERS TO [address] ON TELEMETRY TO MONITOR OVERNIGHT. DENIES PAIN AT THIS TIME. ALERT AND ORIENTED AND ABLE TO MAKE NEEDS KNOWN. WCTM.
--- NOTE | 2016-08-14 18:15 | NUR ---
FLUID BOLUS COMPLETE. B/P INCREASED TO 95/57 AND HR 64. C/O BACK PAIN AND 1 MG DILAUDID IV GIVEN. ACCU CHECK 128 WITH NO COVERAGE NEEDED BEFORE DINNER. NEW ORDERS TO BOLUS 500cc NS IF SBP < 90. SATURATION 98-99%, TOOK O2 PER NC OFF. MD AWARE.
--- NOTE | 2016-08-14 19:43 | NUR ---
RESTING IN BED, DENIES ANY DISCOMFORT AT THIS TIME.
[2016-08-15] VITALS (7 sets, daily range): BP systolic 72–142; BP diastolic 43–62
--- NOTE | 2016-08-15 00:15 | NUR ---
PT RESTING WELL, NO NAUSEA OR ABD PAIN AT THIS TIME. CALL LIGHT WITH PT, BED LOW AND LOCKED, K RIDER IS FINISHED AND WILL MONITOR HR CLOSELY. CURRENTLY HR IS 60-64. WCTM.
--- NOTE | 2016-08-15 07:16 | Progress Note ---
Subjective General Note Date: August 15, 2016 Admission Date: August 14, 2016 Hospital Day: 2 PCP: Tunde Olivarez M.D. Status: Inpatient Advanced Directive: FULL CODE Room: 211 Brief History: The patient is a 56-year-old white female wit significant past medical history diabetes melitis with associated gastroparesis, hypertension, neuropathies, anxiety disorder, GERD, depression, hyperlipidemia who presented to [facility] [place] emergency department on the day of admission secondary to complaints of abdominal pain, nausea, vomiting, worsening over the past 3 weeks. and tingling involving the left hand, mostly the middle finger, along with bleeding visual loss and changes. Patient first began having noticeable subjectivenearly 3 weeks before being seen in the ED. Patient had worsening appetite with associated vomiting with by mouth.. Secondary to the above, the patient was admitted by Tesfaye Calderon MD for further evaluation and treatment. For other history present illness, past medical history, family history, social history, review of systems, and admission physical examination please see the patient's history and physical examination and ER visit note in the patient's medical record. Subjective: The patient states she is doing much better today. No nausea or vomiting. Abdominal pain improved. No other specific complaints. Patient requests: None Medications and Allergies Medications Current Medications Sig/Julián Start time Last Medication Dose Route Stop Time Status Admin Dextrose/Sodium 1,000 ML ASDIRECTED 08/14 1845 AC 08/15 Chloride/Electrolyt IV 1218 Oxycodone/ See Dose Q4H PRN 08/14 1845 AC 08/15 Acetaminophen Insts (1) PO 1419 Potassium Chloride/ 200 ML NOW STA 08/14 1839 CAN Water IV 08/14 2238 Sodium Chloride 500 ML ASDIRECTED 08/14 1500 AC 08/14 IV 1617 Alprazolam 0.5 MG DAILY 08/14 09 AC 08/15 PO 0829 Citalopram 20 MG DAILY 08/14 09 AC 08/15 Hydrobromide PO 0829 Enoxaparin Sodium 40 MG DAILY 08/14 899 AC 08/15 SC 0829 Lisinopril 60 MG DAILY 08/14 09 AC 08/14 PO 0837 Metoprolol Succinate 50 MG DAILY 08/14 09 AC 08/14 PO 0837 Nystatin See Dose BID 08/14 09 AC 08/15 Insts (2) TOP 1026 Insulin Human Lispro See Dose ACHS 08/14 0730 AC 08/15 Insts (3) SC 1218 Pantoprazole Sodium 40 MG DAILY@0600 08/14 0600 AC 08/15 Sesquihydrate PO 0514 Dextrose See Dose Q15MIN PRN 08/14 044 AC Insts (4) IV Dextrose See Dose Q15MIN PRN 08/14 044 AC Insts (5) PO Dextrose/Water 1,000 ML ASDIRECTED PRN 08/14 044 AC IV Glucagon 1 MG Q15MIN PRN 08/14 044 AC IM Hydromorphone HCl 1 MG Q3H PRN 08/14 0300 AC 08/15 IV 0241 Promethazine HCl 12.5 MG Q6H PRN 08/14 0300 AC CO Clonidine HCl 0.1 MG BID 08/14 025 AC 08/15 PO 0829 Gabapentin 100 MG BID 08/14 025 AC 08/15 PO 0829 Acetaminophen 650 MG Q6H PRN 08/14 021 AC PO Ondansetron HCl 4 MG Q6H PRN 08/14 214 AC IV Sodium Chloride 1,000 ML ASDIRECTED 08/14 021 AC 08/14 IV 1135 Dose Instructions: (1)Oxycodone/Acetaminophen: 1 - 2 TABLETS (2)Nystatin: TO UNDER RIGHT BREAST (3)Insulin Human Lispro: LOW DOSE: ACCUCHECK AND SLIDING SCALE >>To change sliding scale DISCONTINUE this order and enter a NEW order. Thanks< (4)Dextrose: 25 OR 50 ML SEE ADMIN CRITERIA (5)Dextrose: 1 OR 2 TUBES SEE ADMIN CRITERIA Allergies Coded Allergies: Lisinopril (Mild, COUGH 08/14/16) Metformin (09/30/13) Tomato (Intermediate, BLISTERS MOUTH 02/03/14) Physical Exam Vital Signs / I&Os Vital Signs Date Time Temp Pulse Resp B/P Pulse O2 O2 Flow FiO2 Ox Delivery Rate 08/15 0628 97.9 61 16 119/53 97 Room Air 0.0 08/15 0236 98.1 66 18 123/62 96 Room Air 08/14 2345 97.7 60 18 103/57 98 08/14 2330 Nasal Cannula 08/14 1804 97.9 64 20 95/57 98 1.0 08/14 1515 115 84/50 08/14 1437 61 08/14 1436 83/47 04/21 1408 59 16 82/49 100 Nasal 1.0 Cannula 08/14 1333 97.9 60 20 73/37 100 Nasal 1.0 Cannula 08/14 1138 92 16 92/50 100 Nasal 1.0 Cannula 08/14 1056 97.7 64 16 76/40 99 Nasal 1.0 Cannula 08/14 1021 80/42 08/14 1017 97.9 62 16 77/40 99 Nasal 1.0 Cannula I&O 08/15 0000 08/14 1600 08/14 0800 Intake Total 1979 2662 348 Output Total 200 75 125 Balance 1779 2587 223 General Appearance Alert, Oriented X3, Cooperative, No acute distress Lungs Clear to auscultation, Normal air movement Cardiovascular Regular rate and rhythm, Normal S1 and S2 Abdomen Normal bowel sounds, Soft, No tenderness Extremities No cyanosis, No clubbing Neurological Cranial nerves intact, No lateralizing signs Psych/Mental Status Mental status normal, Mood normal, slightly lethargic LAB Results Laboratory Tests 08/15 08/15 08/14 08/14 0405 0005 2200 1515 Chemistry Plasma Sodium (136 - 145 mmol/L) 137 140 Plasma Potassium (3.5 - 5.1 mmol/L) 3.9 3.1 Plasma Chloride (98 - 107 mmol/L) 104 104 CO2 (Enzymatic) (21 - 32 mmol/L) 25 26 BUN (7 - 18 mg/dL) 26 29 Creatinine (0.6 - 1.3 mg/dL) 1.7 2.2 Est GFR ( Amer) (mL/min) 39.90 29.64 Est GFR (Non-Af Amer) (mL/min) 32.92 24.45 Glucose (70 - 110 mg/dL) 244 136 Plasma Calcium (8.5 - 10.1 mg/dL) 7.6 7.3 Plasma Magnesium (1.8 - 2.4 mg/dL) 1.4 Total Bilirubin (0.0 - 1.0 mg/dL) 0.4 AST (15 - 37 U/L) 11 ALT (12 - 78 U/L) 12 Alkaline Phosphatase (46 - 116 U/L) 98 Total Protein (6.4 - 8.2 g/dL) 4.7 Albumin (3.3 - 5.0 g/dL) 2.4 Hematology WBC (4.5 - 11.5 K/uL) 10.8 RBC (4.00 - 5.20 M/uL) 3.34 Hgb (12.0 - 16.0 gm/dL) 9.2 9.7 9.4 Hct (36.0 - 46.0 %) 28.9 30.5 28.9 MCV (80 - 100 fL) 87 MCH (26 - 34 pg) 28 RDW (11.6 - 14.8 %) 13.1 Neut % (Auto) (50 - 75 %) 46 Lymph % (Auto) (25 - 40 %) 49 [place] % (Auto) (3 - 14 %) 5 Eos % (Auto) (0 - 4 %) 0 Baso % (Auto) (0 - 2 %) 0 Band Neutrophils % (0 - 8 %) 0 Metamyelocytes % (0 - 1 %) 0 Myelocytes (0 - 1 %) 0 Other Cell Type 0 Plt Count, EDTA (150 - 400 K/uL) 283 PUBS MCHC (31 - 37 g/dL) 32 Assessment and Plan Problem List 1. Gastroparesis Plan -Status post wedge improved -Patient denies findings of nausea or vomiting -Abdominal pain resolved -Monitor -Continue present therapy 2. Abdominal pain Plan -Resolved 3. Dehydration Plan -Much improved -Blood pressure improved -Renal function shows improvement with creatinine at 1.7 today. 2.2 yesterday. -Continue IV hydration, discontinue if taking well orally throughout the day today 4. Intractable vomiting Plan -Resolved 5. Hypotension Status Acute Onset Date 08/14/16 Plan -Resolved -Monitor with placement back on antihypertensive medications as necessary -Hold antihypertensives at this time. 6. Anemia Status Acute Onset Date Unknown Plan -Patient with findings of anemia -H&H stable without signs of active bleeding -Check stool Hemoccult -Check serum iron profile, B12, folate -Monitor 7. Hypomagnesemia Status Acute Onset Date Unknown Plan -patient with findings of hypomagnesemia -Magnesium level I.4 -Oral and IV supplementation -Monitor 8. Diabetes mellitus Status Chronic Onset Date Unknown Plan -Blood sugar mildly elevated today. -Monitor with adjustments in insulin dosage as necessary Current status: Fair, improved Anticipated discharge date: Anticipated discharge in a.m. Anticipated discharge placement: Home Patient care time: Time spent in chart review, patient interview, physical exam, CPOE, and care documentation: 25 minutes Visit to patient today: 1 Complexity of care: Moderate E&M Codes Rounding: Inpt-Moderate/[id number]
--- NOTE | 2016-08-15 08:38 | NUR ---
COMPLETED BEDSIDE SHIFT REPORT AT START OF SHIFT, INTRODUCED SELF, UPDATED WHITEBOARD, DISCUSSED POC. PT IS COOPERATIVE, COMPLETED ASSESSMENT, ACCEPTED AM MEDICATIONS, HOLDING BP MEDS THIS AM FOR HYPOTENSIVE EPISODES LAST NIGHT, PT UP IN CHAIR EATING AT THIS TIME, WCTM.
--- NOTE | 2016-08-15 18:44 | NUR ---
END SHIFT NOTE: PT HAS HAD NO N/V TODAY BUT PERSISTENT ABDOMINAL PAIN THAT IS RELIEVED WITH PERCOCET Q4 HRS. PT AMBULATORY, VOIDING, VSS, AFEBRILE, TOLERATING DIET, ACCUCHECKS STABLE ON THE LOW DOSE SS. PT'S SPOUSE IN TO VISIT TODAY. PT RECEIVING MAG RIDER THIS AFTERNOON.
--- NOTE | 2016-08-15 19:50 | NUR ---
PT. STATES SHE IS EXPERIENCING SOME ABDOMINAL PAIN BUT IT IS MILD, DECLINES THE NEED FOR PAIN MEDICATION AT THIS TIME. DENIES NAUSEA. PT. IS RESTING IN BED, NOT IN DISTRESS. ALERT, ORIENTED AND COOPERATIVE. CONTACT PRECAUTIONS FOR MRSA HX. WCTM.
[2016-08-16 02:32] VITALS: BP 134/72
[2016-08-16 07:54] VITALS: BP 151/73
--- NOTE | 2016-08-16 09:10 | NUR ---
PT REFUSED HER LISINOPRIL THIS AM, DR. CAROLINA NOTIFIED.
[2016-08-16 11:11] VITALS: BP 106/49
[2016-08-16] MEDS ORDERED: LANTUS SOL100 UNITS/ SC (12:32)
[2016-08-16] MEDS ORDERED: LOPRESSOR25 MG PO (12:33)
[2016-08-16] MEDS ORDERED: CLONIDINE HCL0.1 MG PO (12:33)
--- NOTE | 2016-08-16 12:35 | Provider's Discharge Care Plan ---
Problem, Goal, Plan Problem List 1. Gastroparesis Instructions: - consistent carbohydrate diet 2. Diabetes mellitus Instructions: - pay attention to new insulin dosage 3. Hypertension Instructions: - new medications were added please be aware
--- NOTE | 2016-08-16 12:41 | Discharge Summary ---
Discharge Summary Report Admit Date 08/14/16 Discharge Date 08/16/16 Admission Diagnosis gastroparesis and hypertension Discharge Diagnosis gastroparesis and hypertension Brief History please refer to admission H&P Hospital Course Patient was admitted for intractable vomiting and hypertension. Patient was initially kept npo and actively hydrated. Patient was seen to have improved blood sugars and slowly patients appetite came back. Patient was slowly re- introduced a diet and was able to tolerate it. Patients blood pressure required some adjustments in terms of her medications and her blood pressure was eventually normalized with little manipulation of her medications. As of right now patients blood sugars are better and her blood pressure is under control. It is at this point where the patient can be discharged. She will be discharged on all her home medications with few adjustments. Patient will additionally follow up with her primary care provider. General Appearance Alert, Oriented X3, No acute distress HEENT PERRLA, Mucous membran moist/pink Lungs Normal air movement Cardiovascular Normal S1, Normal S2 Abdomen No tenderness, No hepatospenomegaly Pelvic No masses Neurological Normal speech, Normal tone, Sensation intact Psych/Mental Status Mood NL Lab/Imaging Laboratory Tests 08/16 0556 Chemistry Plasma Sodium (136 - 145 mmol/L) 141 Plasma Potassium (3.5 - 5.1 mmol/L) 4.4 Plasma Chloride (98 - 107 mmol/L) 110 CO2 (Enzymatic) (21 - 32 mmol/L) 25 BUN (7 - 18 mg/dL) 15 Creatinine (0.6 - 1.3 mg/dL) 1.2 Est GFR ( Amer) (mL/min) 59.65 Est GFR (Non-Af Amer) (mL/min) 49.21 Glucose (70 - 110 mg/dL) 249 Plasma Calcium (8.5 - 10.1 mg/dL) 8.0 Hematology WBC (4.5 - 11.5 K/uL) 6.8 RBC (4.00 - 5.20 M/uL) 3.62 Hgb (12.0 - 16.0 gm/dL) 10.2 Hct (36.0 - 46.0 %) 31.2 MCV (80 - 100 fL) 86 MCH (26 - 34 pg) 28 RDW (11.6 - 14.8 %) 13.4 Neut % (Auto) (50 - 75 %) 54 Lymph % (Auto) (25 - 40 %) 40 [place] % (Auto) (3 - 14 %) 2 Eos % (Auto) (0 - 4 %) 3 Baso % (Auto) (0 - 2 %) 0 Band Neutrophils % (0 - 8 %) 1 Metamyelocytes % (0 - 1 %) 0 Myelocytes (0 - 1 %) 0 Other Cell Type 0 Plt Count, EDTA (150 - 400 K/uL) 272 PUBS MCHC (31 - 37 g/dL) 33 Discharge Instructions/Meds - take meds as prescribed - adhere to diabetic diet - follow up with your primary care doctor
--- NOTE | 2016-08-16 14:25 | NUR ---
REVIEWED DISCHARGE INFORMATION AND NEW RX INFORMATION WITH PT. ALSO REVIEWED INFO ABOUT GASTROPARESIS, HYPERGLYCEMIA, AND CONSISTENT CARB DIET. ANSWERED ALL QUESTIONS TO PT SATISFACTION. NOTIFIED PT THAT SHE IS TO CALL TOMORROW TO SCHEDULE FOLLOW UP APPOINTMENT WITH DR. WHARTON. EXTENDED DWELL IV IN LEFT ARM DC'D INTACT AND PT WALKED TO CAR AT 1420 BY THIS RN.
== END 2016-08-16 14:11 | disposition home or self-care (01) | DRG 74 ==
LOC: ED SRH 19:21 → ACUTE2 SRH 08-14 00:26 → TRANS SRH 08-14 00:26 → ACUTE2 SRH 08-14 03:07
PROVIDERS: ADMIT Pediatrics
DX: E11.43 Type 2 diabetes mellitus with diabetic autonomic (poly)neuropathy (principal); R11.2 Nausea with vomiting, unspecified; E11.65 Type 2 diabetes mellitus with hyperglycemia; Z79.4 Long term (current) use of insulin; I10 Essential (primary) hypertension; E86.0 Dehydration; I95.9 Hypotension, unspecified; E83.42 Hypomagnesemia; E78.5 Hyperlipidemia, unspecified; K21.9 Gastro-esophageal reflux disease without esophagitis; F41.9 Anxiety disorder, unspecified; F32.9 Major depressive disorder, single episode, unspecified
CPT/HCPCS: 84351; 90004; 90047; 90074; 90098; 90100; 90301; 90616; 91162; 91163; 91295; 91504; 91505; 92132; 92610; 92668; 92670; 92690; 92720; 93004; 94001; 94060; 95059; 95061

== ENCOUNTER 2016-09-12 16:57 | Emergency (ER) | payer OTHER ==
[~2016-09-12 16:57] MED LIST: ALBUTEROL SUL0.083 % IN; CLONIDINE HCL0.1 MG PO; CYMBALTA60 MG PO; GABAPENTIN100 MG PO; HUMALOG100 MG/ML; LANTUS SOL100 UNITS/ SC; LOPRESSOR25 MG PO; MORPHINE SULFATE5 MG PO; NUCYNTA100 MG PO; PERCOCET1 TA1 PO; REGLAN10 MG PO; VITAMIN B3; [UNRECOGNIZED DRUG - OTHER]
--- NOTE | 2016-09-12 21:36 | ED ORDER SUMMARY ---
..... Patient: LIZZY DORSEY OrderSheet [facility] VisitID: [id number] [place] [address] 56y, F Registration Date/Time: 09/12/2016 ORDER SHEET Weight: 86.1 kg (stated) Allergies: LIsinopril, Metformin and Related GENERAL ORDERS: CBC w Diff Urgent (18:09 09/12/2016 Camilla Mackenzie) (Ack 18:37 Nick) (20:19 KPage-Kuchan R.N.) CMP Urgent (18:09 09/12/2016 Camilla Mackenzie) (Ack 18:37 Nick) (20:19 KPage-Kuchan R.N.) Amylase Urgent (18:09 09/12/2016 Camilla Mackenzie) (Ack 18:37 Nick) (20:19 KPage-Kuchan R.N.) Lipase Urgent (18:09 09/12/2016 Camilla Mackenzie) (Ack 18:37 Nick) (20:19 KPage-Kuchan R.N.) Abdomen 1V Urgent (20:42 09/12/2016 Camilla Mackenzie) (Ack 20:44 AMcQuoid ER Tech1) (20:47 Abel) MEDICATION ORDERS: - (Lisinopril 40 mg x 1 now) (17:25 09/12/2016 Camilla Mackenzie) (Cancelled: Physician Order17:25 Camilla Mackenzie) IV FLUIDS: Reglan IV 10 mg (NOW) (17:56 09/12/2016 KPage-Kuchan R.N. verbal order read back to Camilla Mackenzie) (17:59 KPage-Kuchan R.N.) Zofran IV 4 mg (NOW) (17:56 09/12/2016 KPage-Kuchan R.N. verbal order read back to Camilla Mackenzie) (17:57 KPage-Kuchan R.N.) Morphine IV 4 mg (HIGH ALERT MEDICATION, NOW) (20:18 09/12/2016 Camilla Mackenzie) (Ack 20:19 KPage-Kuchan R.N.) (20:31 KPage-Kuchan R.N.) Zofran IV 4 mg (NOW) (21:14 09/12/2016 HSoule per protocol) (21:14 HSoule) ORDER SHEET NOTES: [Electronically signed by Reinier Melgar Dr. (22:06 09/12/2016)] [Electronically signed by Liat Lorenzana R.N. (22:24 09/12/2016)] [Electronically locked/signed by Liat Lorenzana R.N. (:24 09/12/2016)]
--- NOTE | 2016-09-12 21:36 | ED ORDER SUMMARY ---
..... Patient: LIZZY DORSEY OrderSheet [facility] VisitID: [id number] [place] [address] 56y, F Registration Date/Time: 09/12/2016 ORDER SHEET Weight: 86.1 kg (stated) Allergies: LIsinopril, Metformin and Related GENERAL ORDERS: CBC w Diff Urgent (18:09 09/12/2016 Camilla Mackenzie) (Ack 18:37 Nick) (20:19 KPage-Kuchan R.N.) CMP Urgent (18:09 09/12/2016 Camilla Mackenzie) (Ack 18:37 Nick) (20:19 KPage-Kuchan R.N.) Amylase Urgent (18:09 09/12/2016 Camilla Mackenzie) (Ack 18:37 Nick) (20:19 KPage-Kuchan R.N.) Lipase Urgent (18:09 09/12/2016 Camilla Mackenzie) (Ack 18:37 Nick) (20:19 KPage-Kuchan R.N.) Abdomen 1V Urgent (20:42 09/12/2016 Camilla Mackenzie) (Ack 20:44 AMcQuoid ER Tech1) (20:47 Abel) MEDICATION ORDERS: - (Lisinopril 40 mg x 1 now) (17:25 09/12/2016 Camilla Mackenzie) (Cancelled: Physician Order17:25 Camilla Mackenzie) IV FLUIDS: Reglan IV 10 mg (NOW) (17:56 09/12/2016 KPage-Kuchan R.N. verbal order read back to Camilla Mackenzie) (17:59 KPage-Kuchan R.N.) Zofran IV 4 mg (NOW) (17:56 09/12/2016 KPage-Kuchan R.N. verbal order read back to Camilla Mackenzie) (17:57 KPage-Kuchan R.N.) Morphine IV 4 mg (HIGH ALERT MEDICATION, NOW) (20:18 09/12/2016 Camilla Mackenzie) (Ack 20:19 KPage-Kuchan R.N.) (20:31 KPage-Kuchan R.N.) Zofran IV 4 mg (NOW) (21:14 09/12/2016 HSoule per protocol) (21:14 HSoule) ORDER SHEET NOTES: [Electronically signed by Reinier Melgar Dr. (22:06 09/12/2016)] [Electronically signed by Liat Lorenzana R.N. (22:24 09/12/2016)] [Electronically locked/signed by Liat Lorenzana R.N. (:24 09/12/2016)]
--- NOTE | 2016-09-12 21:36 | ED CLINICAL REPORT ---
Clinical Report - Physicians/Mid Levels [facility] [address] [place] [address] 09/12/2016 16:57 Patient: LIZZY DORSEY Time Seen: 17:23; initial patient contact. Arrived- By private vehicle. Historian- patient. HISTORY OF PRESENT ILLNESS Chief Complaint: ABDOMINAL PAIN. At its maximum, severity described as moderate. When seen in the E.D., severity described as moderate. Modifying factors- worsened by food. Not relieved by anything. It is described as "pain". No radiation. It is described as located in the epigastric area. This started today and is still present. The patient has had nausea and vomiting. No loss of appetite or diarrhea. Similar symptoms previously: Many times. Recent medical care: Not recently seen/assessed. REVIEW OF SYSTEMS No constipation, pain with urination, fever or chills. Last bowel movement: today. All systems otherwise negative, except as recorded above. PAST HISTORY Hyperkalemia. Gallstone(s). Anxiety Reaction. MRSA Infection. Abd pain, N/V. Leukocytosis. Immunizations. LNMP - Last Normal Menstrual Period. Back Pain. Nerve pain. Vomiting. Abdominal Pain. Gastroparesis. Panic Attack. Hypercholesterolemia. Hypertension. Diabetes Mellitus. ADDITIONAL SURGERIES: Cholecystectomy. Colonoscopy. Cyst removed from axilla. Endoscopy. Hysterectomy. Neck Surgery. Previous Abdominal Surgery. Rotator Cuff Surgery. Shoulder Surgery. SOCIAL HISTORY Never smoker. No alcohol use or drug use. ADDITIONAL NOTES The nursing notes have been reviewed. PHYSICAL EXAM Vital Signs: 09/12/2016 17:23 BP: 226/120. 09/12/2016 17:15 HR: 94. RR: 20. O2 saturation: 99%. Temp: 98.8 F. Pain level now: 8. Have been reviewed. Hypertensive. Heart rate normal. Respiratory rate normal. Temperature normal. Oxygen saturation normal. Appearance: Alert. Oriented X3. No acute distress. Eyes: Eyes normal inspection. No scleral icterus. ENT: Dry mucous membranes present. CVS: Normal heart rate and rhythm. Heart sounds normal. Respiratory: No respiratory distress. Breath sounds normal. Abdomen: Soft. Mild tenderness in the upper abdomen. No guarding, rebound tenderness or Ambrose's sign present. Bowel sounds normal. No organomegaly. No mass. Back: Normal inspection. No CVA tenderness. Skin: Skin warm and dry. Normal skin color. No rash. Neuro: Oriented X 3. LABS, X-RAYS, AND EKG KUB: Increased stool present. Gas pattern normal. Views: erect AP. Technique: good. The X-rays were independently viewed by me and interpreted contemporaneously by me. A comparison with prior films reveals that the findings have worsened. Interpretation time: 21:32. Laboratory Tests: CBC w Diff: (VICKI: 09/12/2016 18:15) ( MsgRcvd 09/12/2016 18:29) Final results Test Result Flag Units (Reference) WHITE BLOOD COUNT 11.8 H K/uL (4.5-11.5) RED BLOOD COUNT 4.55 M/uL (4.00-5.20) HEMOGLOBIN 12.7 gm/dL (12.0-16.0) HEMATOCRIT 38.8 % (36.0-46.0) MEAN CELL VOLUME 85 fL (80-100) MEAN CORPUSCULAR HGB 28 pg (26-34) MEAN CORPUSCULAR HGB CONC 33 g/dL (31-37) RED CELL DISTRIBUTION WIDTH 13.4 % (11.6-14.8) PLATELET COUNT 316 K/uL (150-400) NEUTROPHIL % 72.8 % (50-75) LYMPH % 21.8 L % (25-40) MONO % 4.7 % (3-14) EOSINOPHIL % 0.5 % (0-4) BASOPHIL % 0.2 % (0-2) . PROGRESS AND PROCEDURES Disposition: Discharged home in good and improved condition. Condition: good. CLINICAL IMPRESSION Constipation INSTRUCTIONS Your Current Medications: CONTINUE TAKING THE FOLLOWING MEDICATIONS: Albuterol Sulfate Inhalation : 2 puffs EERY 6 HOURS NEEDED. Colace Oral : 100 mg 2 tabs BID. Cymbalta Oral : 60mg daily. Gabapentin Oral : 1 in am, 2 at HS. HumaLOG Subcutaneous : 6 units am, 8units lunch, 10 units dinner. Lantus Subcutaneous. Levemir Subcutaneous : 40-50units daily. Metoprolol Tartrate Oral : 25 mg BID. Morphine Sulfate Oral : 1mg 3x a day. Nucynta Oral : Tablet 100 mg, 1 tablet TID. Percocet Oral : 2x a day. Reglan Oral : 10 mg 4x a day, prn. Vit B3-UagyCm-Ijuy-FA-B6-Zn-CU Oral : 50mg daily. Vit D-Vit E-Safflower Oil External : 1000UNITS daily. Prescription Medications: Miralax: take 1 package every day as needed for constipation. Dispense one (1) twelve pack. No refills. Substitution is permissible. Follow-up: Follow up with your doctor in about two days. Call for an appointment. Blood pressure screening was not performed during this visit because the patient has an active diagnosis of hypertension. (Electronically signed by Reinier Melgar Dr. 09/12/2016 22:06)
--- NOTE | 2016-09-12 21:36 | ED NURSING NOTES ---
Clinical Report - Nurses [facility] [address] [place] [address] 09/12/2016 16:57 Patient: LIZZY DORSEY TRIAGE Triage time 17:15. Acuity: LEVEL 3. Chief Complaint: ABDOMINAL PAIN, NAUSEA and VOMITING and (Abdominal pain and N started this morning. Estimates throwing up about 8 times. Hx of gastroparesis.). Alert. SEPSIS SCREEN: Sepsis Screen: negative. Negative (no infection suspected/documented). --17:22 Micheal Caraballo R.N. 17:15 09/12/16. HR: 94 (normal rate). RR: 20 (regular, unlabored and normal). O2 saturation: 99% on room air. Temp: 98.8 F (oral). Pain level now: 12/03. --17:22 Micheal Caraballo R.N. 17:23 09/12/16. BP: 226/120 (regular adult cuff) taken on the left arm, via an automated monitor, while sitting. --17:24 Micheal Caraballo R.N. Weight: 86.1 kg stated. Height/Length: 65 inches Per Patient. BMI: 31.6. --17:15 Micheal Caraballo R.N. Medications Albuterol Sulfate Inhalation 2 puffs, EERY 6 HOURS NEEDED . Colace Oral 100 mg, 2 tabs BID. Cymbalta Oral 60mg, daily. Gabapentin Oral 1 in am, 2 at HS . HumaLOG Subcutaneous 6 units am, 8units lunch, 10 units dinner. Lantus Subcutaneous. Levemir Subcutaneous 40-50units daily . Metoprolol Tartrate Oral 25 mg, BID. Morphine Sulfate Oral 1mg, 3x a day. Nucynta Oral (Tablet 100 mg) 1 tablet, TID. Percocet Oral, 2x a day. Reglan Oral 10 mg, 4x a day as needed. Vit N0-AbqiUq-Xcep-FA-B6-Zn-CU Oral 50mg daily. Vit D-Vit E-Safflower Oil External 1000UNITS daily. --17:16 Micheal Caraballo R.N. Allergies LIsinopril. Metformin and Related. --17:16 Micheal Caraballo R.N. Medication/allergy information source: the patient. --17:22 Micheal Caraballo R.N. History Arrived by private vehicle. Historian: patient. Accompanied by family. Primary physician (Dr. Sampson.). ( Mashed potatoes and gravy, hot turkey sandwich, "None of it stayed down."). No diarrhea, constipation or fever. Last oral intake by patient was (11:30 this morning before V started.). PAST MEDICAL HX: Immunizations: up-to-date. SOCIAL HX: Never smoker. No alcohol use or drug use. She has not traveled outside the [place] The patient was not exposed to meningitis. ABUSE ASSESSMENT: Abuse assessment: The patient was asked "Do you feel safe in your home?" and "Has anyone hurt you or threatened to hurt you?". No report of abuse. SELF HARM ASSESSMENT: A self harm assessment was performed. The patient answered "no" to the question "Do you have thoughts of harming or killing yourself?" and "Have you recently had thoughts about harming or killing others?". FALL RISK ASSESSMENT: Fall risk assessment completed. No fall risk identified. NUTRITIONAL RISK ASSESSMENT: The nutritional risk assessment revealed no deficiencies. FUNCTIONAL ASSESSMENT: Functional assessment: no impairments noted. LEARNING NEEDS ASSESSMENT: The learning needs assessment revealed no barriers. SKIN INTEGRITY ASSESSMENT: Skin integrity risk assessment completed. No skin integrity risk identified. --17:22 Micheal Caraballo R.N. PROBLEMS: Hyperkalemia. Gallstone(s). Anxiety Reaction. MRSA Infection. Abd pain, N/V. Leukocytosis. Immunizations. LNMP - Last Normal Menstrual Period. Back Pain. Nerve pain. Vomiting. Abdominal Pain. Gastroparesis. Panic Attack. Hypercholesterolemia. Hypertension. Diabetes Mellitus. --17:16 Micheal Caraballo R.N. ADDITIONAL SURGERIES: Cholecystectomy. Colonoscopy. Cyst removed from axilla. Endoscopy. Hysterectomy. Neck Surgery. Previous Abdominal Surgery. Rotator Cuff Surgery. Shoulder Surgery. --17:16 Micheal Caraballo R.N. Assessment GENERAL / NEURO / PSYCH: Alert. Oriented X 4. Appears in pain. [place] Coma Scale: 15- eyes open spontaneously (4); best verbal response- oriented x 4 (5); best motor response- obeys commands (6). Patient appears calm and cooperative. RESPIRATORY: No respiratory distress. Respirations not labored. SKIN: Skin is warm and dry. --17:22 Micheal Caraballo R.N. Interventions ID band on patient. To treatment room. --17:22 Micheal Caraballo R.N. NURSING PROGRESS NOTES 17:52 09/12/2016 Site #1 started via IV in the right hand with an 20g angiocath. Saline lock flushed with 10 mL saline. --17:57 Liat Lorenzana R.N. 17:52 09/12/2016 Zofran (Ondansetron HCl) IVP 4 mg given. via site #1. Allergies verified and confirmed 5 rights. IV patency established. IV site checked: no pain, redness, or swelling. IV flushed thoroughly pre- and post-medication administration. IVP given by RN. --17:57 Liat Lorenzana R.N. 17:59 09/12/2016 Reglan (Metoclopramide HCl) IVP 10 mg given. via site #1. Allergies verified and confirmed 5 rights. IV patency established. IV site checked: no pain, redness, or swelling. IV flushed thoroughly pre- and post-medication administration. IVP given by RN (slow ivp). --17:59 Liat Lorenzana R.N. ( pt actively vomiting, gave vo for zofran and reglan to provide comfort to pt. pt rocking back and forth and grunting, reports glucose has been in the 220 range the past couple of days.). --18:00 Liat Lorenzana R.N. Patient identifiers checked. Call light placed in reach. Side rails up x 1. Bed placed in lowest position. Brakes of bed on. Patient waiting for evaluation. --18:00 Liat Lorenzana R.N. 17:41. Care transferred and report received. ( assumed care of pt, pt actively vomiting yellow fluid in to emesis bag). --18:01 Liat Lorenzana R.N. ( pt cont to rock back and forth and grunts, pt asked if she always does that and she states "yes I have anxiety"). --18:08 Liat Lorenzana R.N. ( no further emesis since meds given, pt waiting for xray, in position of comfort, pt with call light in hand). --19:19 Liat Lorenzana R.N. ( Patient assisted up to restroom. Returned to bed and placed on monitor. Provider notified of patients pain.). --20:08 Breanna Tanner 20:07 09/12/16. BP: 194/93. HR: 98. RR: 20. O2 saturation: 100%. Pain level now: 12/03. --20:08 Breanna Tanner 20:27 09/12/16. BP: 187/96. HR: 74. RR: 17. O2 saturation: 98%. Pain level now 12/03. --20:27 Liat Lorenzana R.N. ( pt c/o inc pain in abd with chronic back pain , morphine given ivp for pain 12/03, at bedside). --20:30 Liat Lorenzana R.N. 20:26 09/12/2016 Morphine IVP 4 mg given. via site #1. Allergies verified, confirmed 5 rights and sedative warning given to the patient. IV patency established. IV site checked: no pain, redness, or swelling. IV flushed thoroughly pre- and post-medication administration. IVP given by RN. --20:31 Liat Lorenzana R.N. 21:14 09/12/2016 Zofran (Ondansetron HCl) IVP 4 mg given over 2 minute(s) via site #1. Allergies verified and confirmed 5 rights. IV patency established. IV site checked: no pain, redness, or swelling. IV flushed thoroughly pre- and post-medication administration. IVP given by RN. --21:14 Breanna Tanner ( Patient vomiting, patient cleaned up and provider notified). --21:15 Breanna Tanner. DISPOSITION / DISCHARGE Departure time: :Sep 12 2016. Condition at departure: improved. No learning barriers present. Discharge instructions provided and reviewed with the patient. Reviewed medication(s) side effects, precautions, dosing and course information. Prescription(s) given to the patient. Reviewed referral to a primary care physician for followup. Patient verbalized understanding. Written instructions provided in Bermudian. The patient was discharged home and accompanied by spouse. She left the Emergency Department ambulatory and via private vehicle. Spouse driving. FALL RISK ASSESSMENT: Fall risk assessment completed. No fall risk identified. --22:08 Jaimee Zavala R.N. 22:05 09/12/16. BP: 204/95. HR: 91. RR: 20. O2 saturation: 97%. Pain level now: 09/02. --22:08 Jaimee Zavala R.N. Locked/Released at 09/12/2016 22:24 by Liat Lorenzana R.N.
--- NOTE | 2016-09-12 22:24 | ED MAR SUMMARY ---
..... Medication Administration Record [facility] [address] [place] [address] Patient: LIZZY DORSEY Visit ID: [id number] 56y, F Weight: 86.1 kg Height/Length: 65 in BMI: 31.6 ALLERGIES: LIsinopril, Metformin and Related Given 17:52 09/12/2016 Liat Lorenzana R.N. Medication Administered: ZOFRAN [IVP] (ONDANSETRON HCL), Dose: 4 mg IVP, Site: #1 right hand. Medication Ordered: Zofran IV 4 mg (NOW). Given 17:59 09/12/2016 Liat Lorenzana R.N. Medication Administered: REGLAN [IVP] (METOCLOPRAMIDE HCL), Dose: 10 mg IVP, Site: #1 right hand. Medication Ordered: Reglan IV 10 mg (NOW). Given 20:26 09/12/2016 Liat Lorenzana R.N. Medication Administered: MORPHINE [IVP], Dose: 4 mg IVP, Site: #1 right hand. Medication Ordered: Morphine IV 4 mg (HIGH ALERT MEDICATION, NOW). Given 21:14 09/12/2016 Breanna Tanner, Medication Administered: ZOFRAN [IVP] (ONDANSETRON HCL), Dose: 4 mg IVP over 2 minute(s), Site: #1 right hand. Medication Ordered: Zofran IV 4 mg (NOW).
--- NOTE | 2016-09-12 22:24 | ED DISCHARGE INSTRUCTIONS ---
Patient: LIZZY DORSEY General Instructions [facility] VisitID: [id number] [place] [address] 56y, F Registration Date/Time: 09/12/2016 Constipation INSTRUCTIONS Your Current Medications: CONTINUE TAKING THE FOLLOWING MEDICATIONS: Albuterol Sulfate Inhalation : 2 puffs EERY 6 HOURS NEEDED. Colace Oral : 100 mg 2 tabs BID. Cymbalta Oral : 60mg daily. Gabapentin Oral : 1 in am, 2 at HS. HumaLOG Subcutaneous : 6 units am, 8units lunch, 10 units dinner. Lantus Subcutaneous. Levemir Subcutaneous : 40-50units daily. Metoprolol Tartrate Oral : 25 mg BID. Morphine Sulfate Oral : 1mg 3x a day. Nucynta Oral : Tablet 100 mg, 1 tablet TID. Percocet Oral : 2x a day. Reglan Oral : 10 mg 4x a day, prn. Vit B7-VrcqBw-Ruto-FA-B6-Zn-CU Oral : 50mg daily. Vit D-Vit E-Safflower Oil External : 1000UNITS daily. Prescription Medications: Miralax: take 1 package every day as needed for constipation. Dispense one (1) twelve pack. No refills. Substitution is permissible. Follow-up: Follow up with your doctor in about two days. Call for an appointment. Blood pressure screening was not performed during this visit because the patient has an active diagnosis of hypertension. ADDITIONAL INFORMATION Constipation (Adult) Constipation is bowel movements that are less frequent than usual. Stools often become very hard and difficult to pass. This may lead to abdominal pain and bloating. It may also cause painful bowel movements. Constipation may be due to a diet thats low in fiber. Some medications, especially pain medications, can also cause it. Constipation may be treated with enemas, suppositories, laxatives or stool softeners. Your doctor will advise you which will work best for you. Follow the advice below to help avoid this problem in the future. Home Care Medication: Take any medicines as directed. Some laxatives are safe only for occasional use. Others can be taken on a regular basis. Talk to your doctor or pharmacist if you have questions. General Care: Prescription pain medications can cause constipation. If you are prescribed pain medications, ask the doctor whether you should also take a stool softener. A diet high in fiber with plenty of fluids helps to maintain regular, soft bowel movements. The following foods are good sources of dietary fiber: Cereals and breads: Whole grain cereal with bran, oatmeal, rolled oats, whole grain breads Fruits: All fruits (fresh and dried), raisins, prunes, apricots, berries, figs Vegetables: Any fresh vegetables, especially peas, broccoli, brussels sprouts, winter squash, green beans, cauliflower, huerta beans, carrots Other: Popcorn, brown rice Drink plenty of water when you increase the amount of fiber you eat. Follow Up with your doctor or return to this facility if symptoms do not improve in the next few days. You may require further tests or a referral to a specialist. Get Prompt Medical Attention if any of the following occur: Fever over 100.4F (38C) Failure to resume normal bowel movements Increasing abdominal or back pain Nausea or vomiting Abdominal swelling Blood in the stool Weakness, dizziness or fainting Unexpected vaginal bleeding You have been given the following additional information: Constipation (Adult) (Electronically signed by Reinier Melgar Dr. 09/12/2016 22:06)
--- NOTE | 2016-09-12 22:24 | ED MAR SUMMARY ---
..... Medication Administration Record [facility] [address] [place] [address] Patient: LIZZY DORSEY Visit ID: [id number] 56y, F Weight: 86.1 kg Height/Length: 65 in BMI: 31.6 ALLERGIES: LIsinopril, Metformin and Related Given 17:52 09/12/2016 Liat Loreznana R.N. Medication Administered: ZOFRAN [IVP] (ONDANSETRON HCL), Dose: 4 mg IVP, Site: #1 right hand. Medication Ordered: Zofran IV 4 mg (NOW). Given 17:59 09/12/2016 Liat Lorenzana R.N. Medication Administered: REGLAN [IVP] (METOCLOPRAMIDE HCL), Dose: 10 mg IVP, Site: #1 right hand. Medication Ordered: Reglan IV 10 mg (NOW). Given 20:26 09/12/2016 Liat Lorenzana R.N. Medication Administered: MORPHINE [IVP], Dose: 4 mg IVP, Site: #1 right hand. Medication Ordered: Morphine IV 4 mg (HIGH ALERT MEDICATION, NOW). Given 21:14 09/12/2016 Breanna Tanner, Medication Administered: ZOFRAN [IVP] (ONDANSETRON HCL), Dose: 4 mg IVP over 2 minute(s), Site: #1 right hand. Medication Ordered: Zofran IV 4 mg (NOW).
--- NOTE | 2016-09-12 22:24 | ED MED RECONCILIATION SUMMARY ---
Patient: LIZZY DORSEY Medication Reconciliation Report [facility] VisitID: [id number] [address] [place] [address] 56y, F Registration Date/Time: 09/12/2016 Weight: 86.1 kg Height/Length: 65 in. BMI: 31.6 ALLERGIES: LIsinopril, Metformin and Related The patient's Home Medications are listed below: CONTINUE TAKING THE FOLLOWING MEDICATIONS: Albuterol Sulfate Inhalation 2 puffs, EERY 6 HOURS NEEDED Colace Oral 100 mg, 2 tabs BID Cymbalta Oral 60mg, daily Gabapentin Oral 1 in am, 2 at HS HumaLOG Subcutaneous 6 units am, 8units lunch, 10 units dinner Lantus Subcutaneous Levemir Subcutaneous 40-50units daily Metoprolol Tartrate Oral 25 mg, BID Morphine Sulfate Oral 1mg, 3x a day Nucynta Oral (100 mg) 1 tablet, TID Percocet Oral, 2x a day Reglan Oral 10 mg, 4x a day Vit J3-VwhvAq-Xwvj-FA-B6-Zn-CU Oral 50mg daily Vit D-Vit E-Safflower Oil External 1000UNITS daily The source(s) of the original Home Medication information: patient The following Medications were given to the patient in the Emergency Department: Zofran [IVP] IVP 4 mg, administered: 09/12/2016 5:52:00 PM Reglan [IVP] IVP 10 mg, administered: 09/12/2016 5:59:00 PM Morphine [IVP] IVP 4 mg, administered: 09/12/2016 8:26:00 PM Zofran [IVP] IVP 4 mg, administered: 09/12/2016 9:14:00 PM The following Medications were prescribed to the patient: Miralax: take 1 package every day as needed for constipation. Dispense one (1) twelve pack. No refills. Substitution is permissible. -- Reinier Melgar Dr.
--- NOTE | 2016-09-12 22:24 | ED DISCHARGE INSTRUCTIONS ---
Patient: LIZZY DORSEY General Instructions [facility] VisitID: [id number] [place] [address] 56y, F Registration Date/Time: 09/12/2016 Constipation INSTRUCTIONS Your Current Medications: CONTINUE TAKING THE FOLLOWING MEDICATIONS: Albuterol Sulfate Inhalation : 2 puffs EERY 6 HOURS NEEDED. Colace Oral : 100 mg 2 tabs BID. Cymbalta Oral : 60mg daily. Gabapentin Oral : 1 in am, 2 at HS. HumaLOG Subcutaneous : 6 units am, 8units lunch, 10 units dinner. Lantus Subcutaneous. Levemir Subcutaneous : 40-50units daily. Metoprolol Tartrate Oral : 25 mg BID. Morphine Sulfate Oral : 1mg 3x a day. Nucynta Oral : Tablet 100 mg, 1 tablet TID. Percocet Oral : 2x a day. Reglan Oral : 10 mg 4x a day, prn. Vit [id number] Oral : 50mg daily. Vit D-Vit E-Safflower Oil External : 1000UNITS daily. Prescription Medications: Miralax: take 1 package every day as needed for constipation. Dispense one (1) twelve pack. No refills. Substitution is permissible. Follow-up: Follow up with your doctor in about two days. Call for an appointment. Blood pressure screening was not performed during this visit because the patient has an active diagnosis of hypertension. ADDITIONAL INFORMATION Constipation (Adult) Constipation is bowel movements that are less frequent than usual. Stools often become very hard and difficult to pass. This may lead to abdominal pain and bloating. It may also cause painful bowel movements. Constipation may be due to a diet thats low in fiber. Some medications, especially pain medications, can also cause it. Constipation may be treated with enemas, suppositories, laxatives or stool softeners. Your doctor will advise you which will work best for you. Follow the advice below to help avoid this problem in the future. Home Care Medication: Take any medicines as directed. Some laxatives are safe only for occasional use. Others can be taken on a regular basis. Talk to your doctor or pharmacist if you have questions. General Care: Prescription pain medications can cause constipation. If you are prescribed pain medications, ask the doctor whether you should also take a stool softener. A diet high in fiber with plenty of fluids helps to maintain regular, soft bowel movements. The following foods are good sources of dietary fiber: Cereals and breads: Whole grain cereal with bran, oatmeal, rolled oats, whole grain breads Fruits: All fruits (fresh and dried), raisins, prunes, apricots, berries, figs Vegetables: Any fresh vegetables, especially peas, broccoli, brussels sprouts, winter squash, green beans, cauliflower, huerta beans, carrots Other: Popcorn, brown rice Drink plenty of water when you increase the amount of fiber you eat. Follow Up with your doctor or return to this facility if symptoms do not improve in the next few days. You may require further tests or a referral to a specialist. Get Prompt Medical Attention if any of the following occur: Fever over 100.4F (38C) Failure to resume normal bowel movements Increasing abdominal or back pain Nausea or vomiting Abdominal swelling Blood in the stool Weakness, dizziness or fainting Unexpected vaginal bleeding You have been given the following additional information: Constipation (Adult) (Electronically signed by Reinier Melgar Dr. 09/12/2016 22:06)
--- NOTE | 2016-09-12 22:24 | ED MED RECONCILIATION SUMMARY ---
Patient: LIZZY DORSEY Medication Reconciliation Report [facility] VisitID: [id number] [address] [place] [address] 56y, F Registration Date/Time: 09/12/2016 Weight: 86.1 kg Height/Length: 65 in. BMI: 31.6 ALLERGIES: LIsinopril, Metformin and Related The patient's Home Medications are listed below: CONTINUE TAKING THE FOLLOWING MEDICATIONS: Albuterol Sulfate Inhalation 2 puffs, EERY 6 HOURS NEEDED Colace Oral 100 mg, 2 tabs BID Cymbalta Oral 60mg, daily Gabapentin Oral 1 in am, 2 at HS HumaLOG Subcutaneous 6 units am, 8units lunch, 10 units dinner Lantus Subcutaneous Levemir Subcutaneous 40-50units daily Metoprolol Tartrate Oral 25 mg, BID Morphine Sulfate Oral 1mg, 3x a day Nucynta Oral (100 mg) 1 tablet, TID Percocet Oral, 2x a day Reglan Oral 10 mg, 4x a day Vit [id number] Oral 50mg daily Vit D-Vit E-Safflower Oil External 1000UNITS daily The source(s) of the original Home Medication information: patient The following Medications were given to the patient in the Emergency Department: Zofran [IVP] IVP 4 mg, administered: 09/12/2016 5:52:00 PM Reglan [IVP] IVP 10 mg, administered: 09/12/2016 5:59:00 PM Morphine [IVP] IVP 4 mg, administered: 09/12/2016 8:26:00 PM Zofran [IVP] IVP 4 mg, administered: 09/12/2016 9:14:00 PM The following Medications were prescribed to the patient: Miralax: take 1 package every day as needed for constipation. Dispense one (1) twelve pack. No refills. Substitution is permissible. -- Reinier Melgar Dr.
--- NOTE | 2016-09-12 22:55 | DIAGNOSTIC IMAGING REPORT ---
PROCEDURE: XR ABDOMEN 1 VIEW INDICATION: ABDOMINAL PAIN TECHNIQUE: Single view upright abdomen. COMPARISON: 08/13/2016 FINDINGS: No free air. Nonspecific bowel gas pattern with a paucity of gas in the abdomen. Surgical clips in the gallbladder fossa. No unusual mass effect. Surgical clip in the low pelvis. Osseous structures are intact. Mild degenerative changes in the lower lumbar spine. IMPRESSION: 1. Nonspecific bowel gas pattern with a paucity of bowel gas. 2. Post cholecystectomy.
== END 2016-09-12 22:13 | disposition home or self-care (01) ==
LOC: ED SRH 16:57
DX: K59.00 Constipation, unspecified (principal); R10.13 Epigastric pain; E11.9 Type 2 diabetes mellitus without complications; I10 Essential (primary) hypertension; Z79.899 Other long term (current) drug therapy; Z79.4 Long term (current) use of insulin; Z79.891 Long term (current) use of opiate analgesic
CPT/HCPCS: 90074; 90100; 92235; 92530; 95059